=== PATIENT | male | born 1990 | race Caucasian/White ===

== ENCOUNTER 2018-03-16 19:19 | Emergency (ER) | payer MEDICARE, MEDICAID, SELFPAY ==
[2018-03-16 19:25] VITALS: BP 143/96; PULSE 109; RESP 18; TEMP 37; O2SAT 96
--- NOTE | 2018-03-16 19:37 | ED.GENADUL_ITS ---
Disposition Clinical Impression: Tooth pain, Sialolith Disposition: HOME Condition: Good Instructions: Toothache (ED), Sialoadenitis (ED) Additional Instructions: Please eat plenty of salty things. Please take Tylenol Motrin as directed. Please follow-up with your dentist as soon as possible. If you notice any worsening of your symptoms, or any new symptoms such as vomiting, diarrhea, fever, chills, shortness of breath, chest pain, numbness, weakness, or fainting , please return immediately to the emergency department for reevaluation. Please follow up with your primary care provider as soon as possible for reassessment and reevaluation. As always, it was a pleasure participating in your medical care today. Prescriptions: Acetaminophen [Tylenol Extra Strength] 1,000 mg PO Q6H 5 Days #60 tab Ibuprofen [Motrin Ib] 600 mg PO Q6H 5 Days #60 tablet Referrals: Barron Joyce [Primary Care Provider] - Medical Decision Making - Medical Decision Making This is a 28-year-old male who presents for a mild tooth pain. No evidence of infection for his right lower teeth, he does have a certainly malplaced wisdom tooth, which she has seen a dentist and he is going through the necessary steps for surgical removal of these. He does complain of this mild pain but shows no signs of airway compromise, peritonsillar abscess, tonsillar exudate or swelling, uvular deviation, or even abscess around the tooth itself. There does appear to be a small amount of oral mucosal swelling with small associated sialolith. With no evidence of infection, no signs of airway compromise or significant or pathology aside for his malplaced wisdom teeth and potential small sialolith feel he is safe for discharge home with close follow-up with his PCP and dentist. We discussed red flags which returned the patient understands. He has refused a dental block at this time and is requesting Tylenol and Motrin to go home with instead. I have extensively reviewed the treatment plan and discharge instructions with the patient and their family. I have addressed all patient concerns at this time. The patient and family was made aware of what symptoms to monitor for that would warrant a return to the emergency department. Discussed the plan with the patient and family, they demonstrate verbal understanding and agreement with our assessment and plan at this time. History of Present Illness - General Chief complaint: DentalOral Stated complaint: MOUTH PAIN Time Seen by Provider: 03/16/18 19:34 - History of Present Illness Initial comments: This is a pleasant 28-year-old male with no significant medical past medical history who presents today for evaluation of right lower tooth pain. Patient has known wisdom teeth that are impacted, he has been seen and assessed by dentist for potential extraction. Is currently awaiting further visitation with his primary care provider, and oral surgeon, and an anesthesiologist. He presents today for right lower posterior dental pain. Patient states that he has had very mild pain over the last 1-2 days in the posterior aspect. He denies any difficulty swallowing, difficulty controlling his secretions, or severe pain when eating. He denies any trismus, fever, chills, vomiting or diarrhea. States his pain is made worse when he bites down hard, it improved by nothing. Patient states that he does have a small amount of swelling that he notes over to the tooth, no pain or swelling around the tooth. Patient denies any other complaints at this time. He denies any past surgical history. He denies any pertinent family history. He denies any IV or illicit drug use. - Related Data Melatonin [Melatin] 9 mg PO HS #21 03/24/17 Multivit with Calcium,Iron,Min [One Daily with Calcium-Iron] 1 each PO DAILY 09/08 Risperidone 2 mg PO DAILY #14 tablet 03/24/17 Risperidone 4 mg PO HS #7 tablet 03/24/17 TraZODone [Desyrel] 50 mg PO HS #7 03/24/17 Acetaminophen [Tylenol Extra Strength] 1,000 mg PO Q6H 5 Days #60 tab 03/16/18 Cariprazine HCl [Vraylar] 1 tab PO DAILY AM 03/16/18 Gabapentin 300 mg PO TID 03/16/18 Ibuprofen [Motrin Ib] 600 mg PO Q6H 5 Days #60 tablet 03/16/18 Allergies Allergy/AdvReac Type Severity Reaction Status Date / Time aripiprazole [From Abilify] AdvReac Severe Headache Verified 12/15/17 19:19 Review of Systems Other: 10 point review of systems was performed, pertinent positives and negatives are noted in the history of present illness. Past Medical History - Past Medical History Medical history: no medical history Surgical history: no surgical history - Social History Alcohol use: none Drug use: none General Exam - Other Other exam information: 1.Const: Well-nourished, Well-developed, appearing stated age 2.Eyes: PERRL, no conjunctival injection, and symmetrical lids. 3.ENT: Atraumatic external nose and ears. Moist MM. Neck: Symmetric, trachea midline, No thyromegaly. No signs of airway compromise. No evidence of tonsillar swelling or exudate. No evidence of tonsillar plaques, uvular deviation, or airway compromise. Patient does have 2 in-place wisdom teeth that are perpendicular with his other teeth. Palpation of the area demonstrates no significant swelling, no evidence of abscess, no evidence of discharge or drainage. No significant tenderness on palpation of the tooth. He does appear to be a questionable small sialolith on the right lower oral mucosa. No signs of infection, severe dental caries, or other abnormality. No significant cervical lymphadenopathy. 4.CVS: +S1/S2, No murmurs or gallops. Peripheral pulses 2+ and equal in all extremities. Brisk capillary refill in all extremities. 5.RESP: Unlabored respiratory effort. Clear to auscultation bilaterally. No wheezes rales or rhonchi 6.GI: Soft, Nontender/Nondistended, No hepatosplenomegaly. No guarding or rebound. 7.MSK: Normocephalic/Atraumatic, Extremities w/o deformity or ttp No cyanosis or clubbing, Normal movement of all extremities 8.Skin: Warm, Dry. No rashes or lesions. 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 Sensation grossly intact, no focal neurologic deficits. 10.Psych: (AAO) x3. Appropriate mood and affect Course Vital Signs - 24 hr 03/16/18 19:25 Temperature 37 C Pulse 109 H Respiratory 18 Rate Blood Pressure 143/96 Pulse Oximetry 96
[2018-03-16 20:09] VITALS: BP 137/94; PULSE 101; RESP 18; TEMP 37; O2SAT 97
== END 2018-03-16 20:10 | disposition home or self-care (01) ==
PROVIDERS: Emergency Provider Student in an Organized Health Care Education/Training Program; PCP Family Medicine
DX: R68.84 Jaw pain (principal); K11.5 Sialolithiasis
CPT/HCPCS: 99282 ×2

== ENCOUNTER 2018-07-06 22:50 | Emergency (ER) | payer MEDICARE, MEDICAID, SELFPAY ==
[2018-07-06 23:01] VITALS: PULSE 80; RESP 20; TEMP 36.7; O2SAT 98
--- NOTE | 2018-07-06 23:14 | DI.RAD_ITS ---
SYMPTOM/DIAGNOSIS: 'PATELLA DISLOCATED [facility]', KNEE PAIN LEFT KNEE: Three views. No bone or joint abnormality is identified. IMPRESSION: Negative examination.
--- NOTE | 2018-07-06 23:15 | W.ED.GENAD ---
Discharge Plan Disposition Patient Disposition: HOME Condition: Improving Discharge Details Chief Complaint: Orthopedic Clinical Impression: Contusion of knee, left Primary Care Provider: Barron Joyce ED Provider: Pb Elias Home Meds and New Rx's Prescriptions: Continued One Daily Calcium/Iron 1 EACH tablet 1 ea PO DAILY RF: 0 risperidone 1 MG tablet 2 mg PO DAILY Qty: 14 RF: 0 risperidone 4 MG tablet 4 mg PO HS Qty: 7 RF: 0 trazodone 50 MG tablet 50 mg PO HS Qty: 7 RF: 0 melatonin [Melatin] 3 MG tablet 9 mg PO HS Qty: 21 RF: 0 gabapentin 300 MG capsule 300 mg PO TID RF: 0 Vraylar 1.5 MG capsule 1 tab PO DAILY AM RF: 0 acetaminophen [Mapap Extra Strength] 500 MG tablet 1,000 mg PO Q6H 5 Days Qty: 60 RF: 0 Ibuprofen [Motrin Ib] 200 MG Tablet 600 mg PO Q6H 5 Days Qty: 60 RF: 0 Discharge Instructions Instructions: Contusion in Adults (ED) Additional Instructions: Ice to reduce pain and swelling. Once daily dressing change. Tylenol and/or Ibuprofen as needed for pain. Return for any acute concerns. Medical Decision Making 38-year-old male slipped and fell on ice, landing on his left knee and states he feels his patella was transiently dislocated and relocated by the patient prior to presentation. He did not suffer any other injury. Referred for x-ray to rule out bony dislocation or fracture. No fracture appreciated. Wound cleansed and dressed. Patient ambulatory and feeling better. He is stable for discharge at this time with management of knee contusion HPI General Mode of arrival: wheelchair. Date/Time Provider Initiated Documentation: 07/06/18 22:50. Limitations to Documentation: no limitations. Information obtained by: patient. History of Present Illness 28 year old M presents to the emergency department with the chief complaint of Slip and fall with left knee pain. Question if my patella dislocated, described as moderate, Quality is described as aching, and is localized to the left and lower extremity. Patient reports no radiation. Patient started experiencing this minute(s) and it has been constant. No relieving factors improve symptom(s), No exacerbating factors reported . Patient notes other (Abrasion). Related Data Home Medications Medication Instructions Recorded Confirmed One Daily Calcium/Iron 1 ea PO DAILY 03/24/17 07/06/18 melatonin [Melatin] 9 mg PO HS #21 03/24/17 07/06/18 risperidone 2 mg PO DAILY #14 tablet 03/24/17 07/06/18 risperidone 4 mg PO HS #7 tablet 03/24/17 07/06/18 trazodone 50 mg PO HS #7 03/24/17 07/06/18 Ibuprofen [Motrin Ib] 600 mg PO Q6H 5 Days #60 tablet 03/16/18 07/06/18 Vraylar 1 tab PO DAILY AM 03/16/18 07/06/18 acetaminophen [Mapap Extra 1,000 mg PO Q6H 5 Days #60 tab 03/16/18 07/06/18 Strength] gabapentin 300 mg PO TID 03/16/18 07/06/18 Previous Rx's Medication Instructions Recorded melatonin [Melatin] 9 mg PO HS #21 03/24/17 risperidone 2 mg PO DAILY #14 tablet 03/24/17 risperidone 4 mg PO HS #7 tablet 03/24/17 trazodone 50 mg PO HS #7 03/24/17 Ibuprofen [Motrin Ib] 600 mg PO Q6H 5 Days #60 tablet 03/16/18 acetaminophen [Mapap Extra 1,000 mg PO Q6H 5 Days #60 tab 03/16/18 Strength] Allergies Allergy/AdvReac Type Severity Reaction Status Date / Time [facility] [[facility] AdvReac Severe Headache Verified 07/06/18 23:08 General Stated Complaint: Orthopedic RAI: 4 Review of Systems Review of Systems 4 systems reviewed and otherwise no PFSH Social History Smoking/Tobacco Use Status: Never Exam Narrative Exam Narrative: GEN: awake, alert, oriented 3. Pleasant, well groomed, interactive. HEAD: Normocephalic, atraumatic ENT: Mucous membranes moist, oropharynx unremarkable, External ear exam unremarkable EYES: PERRL, EOMI NECK: Full ROM, no SAMRA, no menigismus CHEST/RESP: Nontender EXT: Full ROM, no edema, no rash. Abrasion right medial knee, mild tenderness throughout the joint, no laxity present. Motor 5 out of 5 in upper and lower extremity Neuro: Grossly normal neurologic exam, conversant, interactive. Psych: Speech fluent, thoughts congruent, affect normal M Course Vital Signs Temperature 36.7 C 07/06/18 23:01 Pulse 80 07/06/18 23:01 Respiratory Rate 20 07/06/18 23:01 Pulse Oximetry 98 07/06/18 23:01 Temperature 36.7 C 07/06/18 23:01 Temperature Source Temporal Artery Scan 07/06/18 23:01 Pulse 80 07/06/18 23:01 Respiratory Rate 20 07/06/18 23:01 Respiratory Effort Non-Labored 07/06/18 23:06 Pulse Oximetry 98 07/06/18 23:01 Oxygen Delivery Method Room Air 07/06/18 23:01 Oxygen Flow Rate 0 07/06/18 23:01 Pain Level 8 07/06/18 23:01 Comment 07/06/18 23:01
--- NOTE | 2018-07-06 23:19 | NUR.NOTE ---
Nursing Note: cleansed with saline, bacitracin applied to superficial abrasion medial left knee. Knee wrapped in non adherent dressing covered with gauze.
[2018-07-06 23:55] VITALS: PULSE 80; RESP 20; TEMP 36.7; O2SAT 98
--- NOTE | 2018-07-07 00:25 | DI.VRAD_ITS ---
EXAM: XR Left Knee, 3 Views EXAM DATE/TIME: 07/06/2018 11:16 PM CLINICAL HISTORY: 28 years old, male; Injury or trauma; Fall; Initial encounter; Abrasion and sprain or strain; Patella or knee; Left TECHNIQUE: XR Left knee 3 views. COMPARISON: No relevant prior studies available. FINDINGS: Bones/joints: Typical for age. No evidence of acute fracture. Soft tissues: Unremarkable. IMPRESSION: No acute findings. Dictated and Authenticated by: Tyler Chang MD. Ordering:BARB Ambriz MD
== END 2018-07-06 23:55 | disposition home or self-care (01) ==
PROVIDERS: Emergency Provider Emergency Medicine; PCP Family Medicine
DX: S80.02XA Contusion of left knee, initial encounter (principal); W01.0XXA Fall on same level from slipping, tripping and stumbling without subsequent striking against object, initial encounter
CPT/HCPCS: 73562; 99283; 99282

== ENCOUNTER 2018-09-05 16:57 | Emergency (ER) | payer MEDICARE, MEDICAID, SELFPAY ==
[2018-09-05 17:06] VITALS: BP 154/106; PULSE 97; RESP 16; TEMP 37.2; O2SAT 97
--- NOTE | 2018-09-05 17:25 | ED.GENADUL_ITS ---
Discharge Plan Disposition Patient Disposition: HOME Condition: Stable Discharge Details Chief Complaint: GenMedical Clinical Impression: General weakness Primary Care Provider: Barron Joyce ED Provider: Erik Cordero Home Meds and New Rx's Prescriptions: Continued One Daily Calcium/Iron 1 EACH tablet 1 ea PO DAILY RF: 0 trazodone 50 MG tablet 50 mg PO HS Qty: 7 RF: 0 melatonin [Melatin] 3 MG tablet 9 mg PO HS Qty: 21 RF: 0 gabapentin 300 MG capsule 600 mg PO TID RF: 0 Vraylar 1.5 MG capsule 3 tab PO DAILY AM RF: 0 acetaminophen [Mapap Extra Strength] 500 MG tablet 1,000 mg PO Q6H 5 Days Qty: 60 RF: 0 Ibuprofen [Motrin Ib] 200 MG Tablet 600 mg PO Q6H 5 Days Qty: 60 RF: 0 risperidone 1 MG tablet 6 mg PO DAILY RF: 0 Discharge Instructions Instructions: Weakness (ED) Additional Instructions: follow up with your primary care provider in 1-2 weeks if not improving if you feel you are having difficulty breathing, have severe pain in the abdomen or feel significantly more ill return to the emergency department for reevaluation Medical Decision Making 28 yo male with hx of bipolar, anxiety, who comes in with chief complaint of feeling general weakness and fatigue since yesterday and intermittent tingling and numbness in the extremities. no fevers, chills, n/v, dyapnea, chest pain, abdominal pain. No recent travel or new meds per pt. He is caox4 without focal neuro deficits, nih of 0, doubt entities such as cva or tia given lack of weakness or vision changes or other symptoms to suggest this. No fevers or other infectious symptoms. No murmurs, denies ivdu and no stigmata of endocarditis. Will eval for electrolyte abnormalities, check tsh and eval for anemia and monitor labs unremarkable, he remains stable, ambulating with normal gait and no new findings on exam. Feel he is safe for d/c with f/u with pcp and return if any worsening or new concerning symptoms develop Differential Diagnosis viral illness, anemia, electrolyte abnormality, hypothyroid Lab Data Lab results reviewed: Yes I reviewed the patient's lab results. HPI General Mode of arrival: ambulatory . Date/Time Provider Initiated Documentation: 09/05/18 17:03 . Limitations to Documentation: no limitations . Information obtained by: patient . History of Present Illness 28 year old M presents to the emergency department with the chief complaint of general fatigue, described as mild, with intensity rated at 3. Patient started experiencing this day(s) and it has been constant. No relieving factors improve symptom(s), No exacerbating factors reported . Patient notes other (numbness and tingling). Patient did receive the following treatments prior to arrival, none Related Data Home Medications Medication Instructions Recorded Confirmed One Daily Calcium/Iron 1 ea PO DAILY 03/24/17 09/05/18 melatonin [Melatin] 9 mg PO HS #21 03/24/17 09/05/18 trazodone 50 mg PO HS #7 03/24/17 09/05/18 Ibuprofen [Motrin Ib] 600 mg PO Q6H 5 Days #60 tablet 03/16/18 07/06/18 Vraylar 3 tab PO DAILY AM 03/16/18 07/06/18 acetaminophen [Mapap Extra 1,000 mg PO Q6H 5 Days #60 tab 03/16/18 09/05/18 Strength] gabapentin 600 mg PO TID 03/16/18 07/06/18 risperidone 6 mg PO DAILY 09/05/18 09/05/18 Previous Rx's Medication Instructions Recorded melatonin [Melatin] 9 mg PO HS #21 03/24/17 trazodone 50 mg PO HS #7 03/24/17 Ibuprofen [Motrin Ib] 600 mg PO Q6H 5 Days #60 tablet 03/16/18 acetaminophen [Mapap Extra 1,000 mg PO Q6H 5 Days #60 tab 03/16/18 Strength] Allergies Allergy/AdvReac Type Severity Reaction Status Date / Time aripiprazole [From Abilify] AdvReac Severe Headache Verified 09/05/18 17:09 General Stated Complaint: GenMedical RAI: 3 Review of Systems Review of Systems All systems reviewed & are unremarkable except as noted in HPI and below Constitutional Denies chills and Denies fever(s) Eyes Denies loss of vision ENT Denies change in voice Cardiovascular Denies chest pain and Denies dyspnea Respiratory Denies cough and Denies dyspnea Gastrointestinal Denies abdominal pain, Denies nausea and Denies vomiting Genitourinary Denies dysuria Musculoskeletal Denies joint swelling Integumentary/Breasts Denies rash Neurologic Denies loss of vision Psychiatric Denies depression Endocrine Denies cold intolerance and Denies heat intolerance PFSH Social History Smoking and Tabacco status: Never Exam Const General: no acute distress Orientation: alert HENMT Head: normal to inspection Ears: external ears normal General nose exam: external nose normal Mouth: moist mucous membranes Eyes General: appearance normal, both eyes and all related structures Neck Neck: normal visual inspection Resp Effort & Inspection: normal respiratory effort and able to speak in complete sentences Cardio Rate: regular rate Skin General skin exam: no rashes or lesions noted Neuro General: alert and oriented x3 Extrem General: normal to inspection Psych Mental Status: mental status grossly normal Course Vital Signs Temperature 37.2 C 09/05/18 17:06 Pulse 97 H 09/05/18 17:06 Respiratory Rate 16 09/05/18 17:06 Blood Pressure 154/106 H 09/05/18 17:06 Pulse Oximetry 97 09/05/18 17:06 Temperature 37.2 C 09/05/18 17:06 Temperature Source Skin 09/05/18 17:06 Pulse 97 H 09/05/18 17:06 Respiratory Rate 16 09/05/18 17:06 Respiratory Effort Non-Labored 09/05/18 17:06 Blood Pressure 154/106 H 09/05/18 17:06 Blood Pressure Position Sitting 09/05/18 17:06 Pulse Oximetry 97 09/05/18 17:06 Oxygen Delivery Method Room Air 09/05/18 17:06 Oxygen Flow Rate 0 09/05/18 17:06 Pain Level 0 09/05/18 17:06
[2018-09-05 17:47] LABS: Abs Immature Grans 0.03 k/cumm (0.0-0.09); Absolute Basophil Count 0.02 k/cumm (0.0-0.2); Absolute Eosinophil Count 0.11 k/cumm (0.0-0.7); Absolute Lymphocyte Count 1.75 k/cumm (1.2-3.4); Absolute Monocyte Count 0.64 k/cumm (0.11-0.7); Absolute Neutrophil Count 5.34 k/cumm (1.2-6.7); Basophils % 0.3; Eosinophils % 1.4; HCT 41.2 % (40.0-50.0); HGB 13.9 g/dL (13.5-17.5); Immature Grans % 0.4; Lymphocytes % 22.2; Mean Corp. HGB Concentration 33.7 g/dL (32.0-36.0); Mean Corpuscular Hemoglobin 30.8 pg (27.0-33.0); Mean Corpuscular Volume 91.4 fL (80-95); Mean Platelet Volume 9.6 fL (8.0-11.0); Monocytes % 8.1; Neutrophils % 67.6; Platelet Count 195 x1000/uL (130-400); RBC 4.51 m/cumm (4.50-6.00); RBC Distribution Width 13.6 % (11.8-14.1); White Blood Cell Count 7.89 k/cumm (4.4-10.8)
[2018-09-05 18:04] LABS: BUN 9 mg/dL (7-18); CREATININE 1.13 mg/dL (0.70-1.30); Calcium 8.9 mg/dL (8.5-10.1); Chloride 103 mmol/L (98-107); Glucose 136 mg/dL (70-100); Potassium 3.9 mmol/L (3.5-5.1); Sodium 142 mmol/L (136-145); TSH (W/Ref FT4) 2.32 uIU/mL (0.358-3.74)
== END 2018-09-05 18:20 | disposition home or self-care (01) ==
PROVIDERS: Emergency Provider Emergency Medicine; PCP Family Medicine
DX: R53.1 Weakness (principal); R53.83 Other fatigue; R20.2 Paresthesia of skin
CPT/HCPCS: 36415; 80048; 99283; 84443; 85025; 99282

== ENCOUNTER 2019-02-23 14:48 | Emergency (ER) | payer MEDICARE, MEDICAID, SELFPAY ==
[2019-02-23 14:59] VITALS: BP 130/88; PULSE 107; RESP 20; TEMP 37.1; O2SAT 96
[2019-02-23] MEDS: Lidocaine 5% Patch 1 PATCH (15:10)
--- NOTE | 2019-02-23 15:40 | ED.GENADUL_ITS ---
Discharge Plan Disposition Patient Disposition: HOME Condition: Stable Discharge Details Chief Complaint: Nk/Back Pain Clinical Impression: Lumbar back pain Primary Care Provider: Barron Joyce ED Provider: Luis Cruz Home Meds and New Rx's Prescriptions: New cyclobenzaprine 10 mg tablet 10 mg PO TID PRN (Reason: muscle spasm) Qty: 10 RF: 0 Continued One Daily Calcium/Iron 1 EACH tablet 1 ea PO DAILY RF: 0 trazodone 50 MG tablet 50 mg PO HS Qty: 7 RF: 0 melatonin [Melatin] 3 MG tablet 9 mg PO HS Qty: 21 RF: 0 acetaminophen [Mapap Extra Strength] 500 MG tablet 1,000 mg PO Q6H 5 Days Qty: 60 RF: 0 Ibuprofen [Motrin Ib] 200 MG Tablet 600 mg PO Q6H 5 Days Qty: 60 RF: 0 gabapentin 300 MG capsule 600 mg PO TID RF: 0 Vraylar 1.5 MG capsule 3 tab PO DAILY AM RF: 0 risperidone 1 MG tablet 6 mg PO DAILY RF: 0 Discharge Instructions Instructions: Low Back Strain (ED) Additional Instructions: Please take 600 mg of ibuprofen along with 1000 mg of acetaminophen every 6 hours for pain. You may use the Flexeril every 8 hours for muscle spasms. If lidocaine patch is effective you may purchase these [id number] and use as directed on packaging. Return to the emergency department for any severe worsening of symptoms otherwise for continued symptoms you should follow-up with your primary care provider in the next 1 to 2-weeks Referrals: Barron Joyce [Primary Care Provider] - (As needed for reassessment or if not improving) Discharge Data Discharge Date/Time-TO BE ENTERED AT DEPARTURE: 02/23/19 15:57 Medical Decision Making Patient presenting the emergency department for chief complaint of back pain. Patient states that he was bending over 1 week ago and felt something pull in his back. Patient states chronic history of back pain after injury from some horseplay with his brother. He states that this was 6 years ago or greater. After injuring his back a week ago he initially tried to continue to perform activities but over the past 5 days has only laid in bed and noting that pain is getting worse. Physical exam shows lumbar spinal tenderness with significant tenderness to palpation of paraspinal tissue along with palpation of the buttocks and sciatic notches. This is bilateral. Patient has no radiculopathy symptoms to distal extremities, no numbness no tingling stated by patient, no saddle anesthesia, no fever no chills, no bowel or bladder dysfunction. At this time I doubt central cord syndrome, epidural abscess, cauda equina, or other emergent back pain and feel that this is more of lumbar back pain 1 due to patient's body habitus and to due to muscular injury. Patient was encouraged to take ibuprofen and acetaminophen, Flexeril, and use [id number] lidocaine patches as needed for discomfort. Return precautions discussed otherwise patient to follow-up with primary care provider for reassessment if not improving. After discussion of diagnosis and plan of care patient has no further needs, questions, or concerns and states clear understanding to return to the emergency department for any worsening symptoms. HPI General Mode of arrival: ambulatory . Date/Time Provider Initiated Documentation: 02/23/19 15:21 . Limitations to Documentation: no limitations . Information obtained by: patient and RN notes reviewed . History of Present Illness 29 year old M presents to the emergency department with the chief complaint of back pain, described as severe, with intensity rated at 8. Quality is described as sharp, and is localized to the back. Patient started experiencing this week(s) (1) and it has been constant. Movement worsens symptoms . Patient notes no other symptoms.. Patient did receive the following treatments prior to arrival, none Related Data Home Medications Medication Instructions Recorded Confirmed One Daily Calcium/Iron 1 ea PO DAILY 03/24/17 09/05/18 melatonin [Melatin] 9 mg PO HS #21 03/24/17 09/05/18 trazodone 50 mg PO HS #7 03/24/17 09/05/18 Vraylar 3 tab PO DAILY AM 03/16/18 07/06/18 gabapentin 600 mg PO TID 03/16/18 07/06/18 risperidone 6 mg PO DAILY 09/05/18 09/05/18 Ibuprofen [Motrin Ib] 600 mg PO Q6H 5 Days #60 tab 02/23/19 acetaminophen [Mapap Extra 1,000 mg PO Q6H 5 Days #60 tab 02/23/19 Strength] cyclobenzaprine 10 mg PO TID PRN #10 tab 02/23/19 Previous Rx's Medication Instructions Recorded melatonin [Melatin] 9 mg PO HS #21 03/24/17 trazodone 50 mg PO HS #7 03/24/17 Ibuprofen [Motrin Ib] 600 mg PO Q6H 5 Days #60 tab 02/23/19 acetaminophen [Mapap Extra 1,000 mg PO Q6H 5 Days #60 tab 02/23/19 Strength] cyclobenzaprine 10 mg PO TID PRN #10 tab 02/23/19 Allergies Allergy/AdvReac Type Severity Reaction Status Date / Time aripiprazole [From Abilify] AdvReac Severe Headache Verified 09/05/18 17:09 General Stated Complaint: Nk/Back Pain RAI: 3 Review of Systems Constitutional Denies chills and Denies fever(s) Cardiovascular Denies chest pain and Denies dyspnea on exertion Respiratory Denies cough and Denies dyspnea on exertion Gastrointestinal Denies abdominal pain, Denies change in bowel habits, Denies diarrhea, Denies nausea and Denies vomiting Genitourinary Denies difficulty urinating and Denies urinary incontinence Musculoskeletal Reports as per HPI and Reports back pain Neurologic Denies sensory deficit PFSH Social History Smoking/Tobacco Use Status: Never Drug use: Never Do you feel safe in your relationship?: Yes Exam Const General: cooperative Nutritional Appearance: obese morbidly obese Orientation: alert, awake and oriented x3 Neck Neck: normal visual inspection, full ROM and no meningeal signs Resp Effort & Inspection: normal respiratory effort Auscultation: clear to auscultation bilaterally Cardio Rate: regular rate Rhythm: regular rhythm Heart Sounds: S1 normal and S2 normal Back/Spine/Pelvis Thoracic/Lumbar Spine: pain with thoraco-lumbar ROM, paraspinal tenderness (lower lumbar), thoraco-lumbar ROM limited, lumbar spinal tenderness (L3-4) and straight leg raise positive Pelvis: no pain with anterior-posterior compression, no pain with lateral compression, no buttock ecchymosis, buttock tenderness bilaterally and sciatic notch tenderness on the right and on the left Neuro General: alert, awake and oriented x3 DTR's: Rt Patellar: 2+, Lt Patellar: 2+, Rt Ankle: 2+ and Lt Ankle: 2+ Course Vital Signs Temperature 37.1 C 02/23/19 14:59 Pulse 107 H 02/23/19 14:59 Respiratory Rate 20 02/23/19 14:59 Blood Pressure 130/88 02/23/19 14:59 Pulse Oximetry 96 02/23/19 14:59 Temperature 37.1 C 02/23/19 14:59 Temperature Source Temporal Artery Scan 02/23/19 14:59 Pulse 107 H 02/23/19 14:59 Respiratory Rate 20 02/23/19 14:59 Blood Pressure 130/88 02/23/19 14:59 Blood Pressure Position Sitting 02/23/19 14:59 Pulse Oximetry 96 02/23/19 14:59 Oxygen Delivery Method Room Air 02/23/19 14:59 Oxygen Flow Rate 0 02/23/19 14:59 Pain Level 10 02/23/19 14:59
[2019-02-23] MEDS: Acetaminophen 500 MG TAB 1000 MG PO (15:46)
[2019-02-23] MEDS: Ibuprofen 600 MG TAB PO (15:46)
[2019-02-23] MEDS: Cyclobenzaprine 10 MG TAB PO (15:46)
== END 2019-02-23 15:57 | disposition home or self-care (01) ==
LOC: ER 15:49
PROVIDERS: Emergency Provider Nurse Practitioner Family; PCP Family Medicine
DX: M54.5 Low back pain (principal)
CPT/HCPCS: 99283

== ENCOUNTER 2019-04-22 15:33 | Emergency (ER) | payer MEDICARE, MEDICAID, SELFPAY ==
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
[2019-04-22 15:44] VITALS: BP 125/87; PULSE 120; RESP 16; TEMP 37.2; O2SAT 96
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
[2019-04-22 16:05] VITALS: PULSE 98
--- NOTE | 2019-04-22 16:13 | NUR.NOTE ---
Nursing Note: pt apears significantly calmer after sitting in the ER for several moments. also noted that his HR had gone from 120s to 90s
[2019-04-22 17:02] VITALS: BP 125/87; PULSE 98; RESP 16; TEMP 37.2; O2SAT 96
== END 2019-04-22 17:08 | disposition home or self-care (01) ==
PROVIDERS: Emergency Provider Physician Assistant; PCP Family Medicine
DX: F41.9 Anxiety disorder, unspecified (principal); F43.12 Post-traumatic stress disorder, chronic; R22.41 Localized swelling, mass and lump, right lower limb
CPT/HCPCS: 99283

== ENCOUNTER 2019-04-28 17:03 | Emergency (ER) | payer MEDICARE, MEDICAID, SELFPAY ==
[2019-04-28 17:09] VITALS: BP 157/94; PULSE 104; RESP 20; TEMP 36.8; O2SAT 98
--- NOTE | 2019-04-28 17:53 | ED.GENADUL_ITS ---
Discharge Plan Disposition Patient Disposition: HOME Condition: Stable Discharge Details Chief Complaint: Sorethroat Clinical Impression: Acute left otitis media Primary Care Provider: Barron Joyce ED Provider: Erik Cordero Home Meds and New Rx's Prescriptions: New amoxicillin 500 mg tablet 500 mg PO BID Qty: 20 RF: 0 Continued One Daily Calcium/Iron 1 EACH tablet 1 ea PO DAILY RF: 0 trazodone 50 MG tablet 50 mg PO HS Qty: 7 RF: 0 melatonin [Melatin] 3 MG tablet 9 mg PO HS Qty: 21 RF: 0 cyclobenzaprine 10 mg tablet 10 mg PO TID PRN (Reason: muscle spasm) Qty: 10 RF: 0 acetaminophen [Mapap Extra Strength] 500 MG tablet 1,000 mg PO Q6H 5 Days Qty: 60 RF: 0 Ibuprofen [Motrin Ib] 200 MG Tablet 600 mg PO Q6H 5 Days Qty: 60 RF: 0 gabapentin 300 MG capsule 600 mg PO TID RF: 0 Vraylar 1.5 MG capsule 3 tab PO DAILY AM RF: 0 risperidone 1 MG tablet 6 mg PO DAILY RF: 0 Discharge Instructions Instructions: Otitis Media (ED) Additional Instructions: if not better within a week see your primary care provider if you have severe worsening pain or feel more ill return to the emergency department Medical Decision Making patient has had nasal congestion, sore throat and left ear pain for several days. he denies high fevers and is swallowing, speaking and breathing normally on exam. 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 Does have mild erythema of posteriorp harynx, strep negative. right tm, bilateral ext audtory canals and external mastoid exams normal. Left tm is red and bugling so will start abx for this as he has had symptoms for 2 days. Return precautions given Differential Diagnosis Differential Diagnosis: pharyngitis, uri, acute otitis media Lab Data Lab results reviewed: Yes I reviewed the patient's lab results. HPI General Mode of arrival: ambulatory . Date/Time Provider Initiated Documentation: 04/28/19 17:22 . Limitations to Documentation: no limitations . Information obtained by: patient . History of Present Illness 29 year old M presents to the emergency department with the chief complaint of left ear pain, described as moderate, Quality is described as aching, and it has been c onstant. No relieving factors improve symptom(s), No exacerbating factors reported . Patient did receive the following treatments prior to arrival, none Related Data Home Medications Medication Instructions Recorded Confirmed One Daily Calcium/Iron 1 ea PO DAILY 03/24/17 04/22/19 melatonin [Melatin] 9 mg PO HS #21 03/24/17 04/22/19 trazodone 50 mg PO HS #7 03/24/17 04/22/19 Vraylar 3 tab PO DAILY AM 03/16/18 04/22/19 gabapentin 600 mg PO TID 03/16/18 04/22/19 risperidone 6 mg PO DAILY 09/05/18 04/22/19 Ibuprofen [Motrin Ib] 600 mg PO Q6H 5 Days #60 tablet 02/23/19 04/22/19 acetaminophen [Mapap Extra 1,000 mg PO Q6H 5 Days #60 tab 02/23/19 04/22/19 Strength] cyclobenzaprine 10 mg PO TID PRN #10 tab 02/23/19 04/22/19 amoxicillin 500 mg PO BID #20 tab 04/28/19 Previous Rx's Medication Instructions Recorded melatonin [Melatin] 9 mg PO HS #21 03/24/17 trazodone 50 mg PO HS #7 03/24/17 Ibuprofen [Motrin Ib] 600 mg PO Q6H 5 Days #60 tablet 02/23/19 acetaminophen [Mapap Extra 1,000 mg PO Q6H 5 Days #60 tab 02/23/19 Strength] cyclobenzaprine 10 mg PO TID PRN #10 tab 02/23/19 amoxicillin 500 mg PO BID #20 tab 04/28/19 Allergies Allergy/AdvReac Type Severity Reaction Status Date / Time aripiprazole [From Abilify] AdvReac Severe Headache Verified 04/22/19 15:45 General Stated Complaint: Sorethroat RAI: 3 Review of Systems Review of Systems ROS Unobtainable: All systems reviewed & are unremarkable except as noted in HPI and below Constitutional Constitutional: Denies weakness ENT Ears, Nose, Mouth, and Throat: Denies change in voice Cardiovascular Cardiovascular: Denies chest pain and Denies dyspnea Respiratory Respiratory: Denies cough and Denies dyspnea Gastrointestinal Gastrointestinal: Denies abdominal pain, Denies nausea and Denies vomiting Musculoskeletal Musculoskeletal: Denies joint swelling Neurologic Neurologic: Denies weakness [facility] Social History Smoking/Tobacco Use Status: Never Alcohol Intake: never Drug use: Never Substance use type: does not use Do you feel safe at home: Yes Do you feel safe in your relationship?: Yes Exam Const General: no acute distress Orientation: alert HENMT Head: normal to inspection Ears: external ears normal General nose exam: external nose normal Mouth: moist mucous membranes Eyes General: appearance normal, both eyes and all related structures Neck Neck: normal visual inspection Resp Effort & Inspection: normal respiratory effort and able to speak in complete sentences Cardio Rate: regular rate Skin General skin exam: no rashes or lesions noted Neuro General: alert and oriented x3 Extrem General: normal to inspection Psych Mental Status: mental status grossly normal Course Vital Signs Vital signs: Vital Signs Temperature 36.8 C 04/28/19 17:09 Pulse 104 H 04/28/19 17:09 Respiratory Rate 20 04/28/19 17:09 Blood Pressure 157/94 H 04/28/19 17:09 Pulse Oximetry 98 04/28/19 17:09 Temperature 36.8 C 04/28/19 17:09 Temperature Source Skin 04/28/19 17:09 Pulse 104 H 04/28/19 17:09 Respiratory Rate 20 04/28/19 17:09 Blood Pressure 157/94 H 04/28/19 17:09 Blood Pressure Position Sitting 04/28/19 17:09 Pulse Oximetry 98 04/28/19 17:09 Oxygen Delivery Method Room Air 04/28/19 17:09 Oxygen Flow Rate 0 04/28/19 17:09 Lab/Test Results Lab/Test Results: 04/28/19 17:40 Pharynx Streptococcus Screen ([facility]ARCOS) - Pending POC Strep Test-GAURANG(Rapid) Start: 04/28/19 17:31 Freq: .Rapid Strep Test Status: Active Protocol: Document 04/28/19 17:46 MR (Rec: 04/28/19 17:46 MR [id number]) Strep test-GAURANG(Rapid)-POC POC-Strep test-GAURANG (Rapid) Negative POC-Strep test-GAURANG (Rapid) Negative
== END 2019-04-28 18:08 | disposition home or self-care (01) ==
PROVIDERS: Emergency Provider Emergency Medicine; PCP Family Medicine
DX: H66.92 Otitis media, unspecified, left ear (principal)
CPT/HCPCS: 87880; 99283; 87081

== ENCOUNTER 2019-05-26 08:36 | Emergency (ER) | payer MEDICARE, MEDICAID, SELFPAY ==
[2019-05-26 08:42] VITALS: BP 156/100; PULSE 82; RESP 18; TEMP 37.2; O2SAT 95
--- NOTE | 2019-05-26 08:45 | ED.GENADUL_ITS ---
Discharge Plan Disposition Patient Disposition: HOME Condition: Good Discharge Details Chief Complaint: RashLesion Clinical Impression: Abrasion Primary Care Provider: Barron Joyce ED Provider: Nyla Stephens Home Meds and New Rx's Prescriptions: Continued One Daily Calcium/Iron 1 EACH tablet 1 ea PO DAILY RF: 0 trazodone 50 MG tablet 50 mg PO HS Qty: 7 RF: 0 melatonin [Melatin] 3 MG tablet 9 mg PO HS Qty: 21 RF: 0 cyclobenzaprine 10 mg tablet 10 mg PO TID PRN (Reason: muscle spasm) Qty: 10 RF: 0 acetaminophen [Mapap Extra Strength] 500 MG tablet 1,000 mg PO Q6H 5 Days Qty: 60 RF: 0 Ibuprofen [Motrin Ib] 200 MG Tablet 600 mg PO Q6H 5 Days Qty: 60 RF: 0 amoxicillin 500 mg tablet 500 mg PO BID Qty: 20 RF: 0 gabapentin 300 MG capsule 600 mg PO TID RF: 0 Vraylar 1.5 MG capsule 3 tab PO DAILY AM RF: 0 risperidone 1 MG tablet 6 mg PO DAILY RF: 0 Discharge Instructions Instructions: Abrasion (ED) Additional Instructions: I see no evidence of infection today. You have abrasion in your bellybutton probably from you putting Q-tips and paper towels in it. Do not put anything into your bellybutton. Allow this to dry naturally, you may towel dry after shower but do not put anything deeper into your bellybutton you could see. Please follow-up with your primary care if you have any persistent symptoms. Monitor for signs of infection including redness, warmth, drainage, increased pain, fever/chills. If these arise please seek care urgently once again Referrals: Barron Joyce [Primary Care Provider] - Medical Decision Making Patient is morbidly obese 29-year-old male, accompanied by family, chief complaint of bleeding from his umbilicus. Reports that secondary to his size he has difficulty drying my bellybutton. States that every day after the shower he then puts a paper towel over his finger to insert this into his bellybutton. Also uses Q-tips to clean this out. The umbilicus is particularly deep and I am concerned that he is causing damage with his aggressive cleaning of this. He states that this morning he noted a small amount of blood and is concerned for infection. On evaluation, I see no evidence of infection. He does have a scant amount of blood in the umbilicus and a small abrasion on the superior aspect. Does not appear consistent with fungal infection, no other skin changes are noted. He appears nontoxic. I advised that he stop digitally manipulated his umbilicus and dry gently with a towel. Advise follow-up with primary care. He will return with new or worsening symptoms. All questions and concerns were addressed and is agreement this plan. HPI General Mode of arrival: ambulatory . Date/Time Provider Initiated Documentation: 05/26/19 08:45 . Limitations to Documentation: no limitations . Information obtained by: patient, family and RN notes reviewed . History of Present Illness 29 year old M presents to the emergency department with the chief complaint of bleeding from belly button, described as mild (states he has a very sensitive belly button), Quality is described as aching, and is localized to the abdomen. Patient reports no radiation. Patient started experiencing this unknown (states that he has always had sensitivity) and it has been intermittent (only when he puts things in his umbilicus). Other factors that worsen symptoms (palpation) . Patient notes no other symptoms.. Patient did receive the following treatments prior to arrival, none Related Data Home Medications Medication Instructions Recorded Confirmed One Daily Calcium/Iron 1 ea PO DAILY 03/24/17 05/26/19 melatonin [Melatin] 9 mg PO HS #21 03/24/17 05/26/19 trazodone 50 mg PO HS #7 03/24/17 05/26/19 Vraylar 3 tab PO DAILY AM 03/16/18 05/26/19 gabapentin 600 mg PO TID 03/16/18 05/26/19 risperidone 6 mg PO DAILY 09/05/18 05/26/19 Ibuprofen [Motrin Ib] 600 mg PO Q6H 5 Days #60 tablet 02/23/19 05/26/19 acetaminophen [Mapap Extra 1,000 mg PO Q6H 5 Days #60 tab 02/23/19 05/26/19 Strength] cyclobenzaprine 10 mg PO TID PRN #10 tab 02/23/19 04/22/19 amoxicillin 500 mg PO BID #20 tab 04/28/19 Previous Rx's Medication Instructions Recorded melatonin [Melatin] 9 mg PO HS #21 03/24/17 trazodone 50 mg PO HS #7 03/24/17 Ibuprofen [Motrin Ib] 600 mg PO Q6H 5 Days #60 tablet 02/23/19 acetaminophen [Mapap Extra 1,000 mg PO Q6H 5 Days #60 tab 02/23/19 Strength] cyclobenzaprine 10 mg PO TID PRN #10 tab 02/23/19 amoxicillin 500 mg PO BID #20 tab 04/28/19 Allergies Allergy/AdvReac Type Severity Reaction Status Date / Time aripiprazole [From Abilify] AdvReac Severe Headache Verified 05/26/19 08:46 General RAI: 3 Review of Systems Constitutional Constitutional: Reports as per HPI, Denies chills and Denies fever(s) Musculoskeletal Musculoskeletal: Reports as per HPI Integumentary/Breasts Skin/Breast: Reports as per HPI Neurologic Neurologic: Reports as per HPI, Denies sensory deficit and Denies paresthesias PFSH Social History Smoking/Tobacco Use Status: Never Alcohol Intake: never Drug use: Never Substance use type: does not use Do you feel safe at home: Yes Do you feel safe in your relationship?: Yes Exam Const General: cooperative, healthy appearing, comfortable, no acute distress and well developed Nutritional Appearance: well nourished and obese Orientation: alert and awake Resp Effort & Inspection: normal respiratory effort, able to speak in complete sentences and no respiratory distress Cardio Rate: regular rate Rhythm: regular rhythm GI Inspection: obesity Palpation: soft and tender (Patient has scant amount of blood in umbilicus, small abrasion noted superi) Skin Trauma: abrasion (in umbilicus, no evidence of infection) Neuro General: alert and awake Cognition: normal cognition Speech: speech normal Gait: normal gait Sensory Exam: no sensory deficits noted Psych Appearance: grossly normal and well kempt Mental Status: mental status grossly normal Speech and Movement: speech and movement normal
== END 2019-05-26 09:02 | disposition home or self-care (01) ==
PROVIDERS: Emergency Provider Physician Assistant; PCP Family Medicine
DX: S30.811A Abrasion of abdominal wall, initial encounter (principal); X58.XXXA Exposure to other specified factors, initial encounter
CPT/HCPCS: 99281

== ENCOUNTER 2019-06-14 17:24 | Emergency (ER) | payer MEDICARE, MEDICAID, SELFPAY ==
[2019-06-14 17:31] VITALS: BP 136/86; PULSE 97; RESP 22; TEMP 37.2; O2SAT 98
[2019-06-14 17:45] VITALS: RESP 20
--- NOTE | 2019-06-14 18:13 | DI.RAD_ITS ---
EXAM: XR KNEE RT 4V AP,LAT,JOEY,PAT INDICATION: pain, ttp anterior inferior. COMPARISON: XR knee LT 3V AP,lat,jeoy from 07/06/2018 TECHNIQUE: 2D digital imaging was performed. FINDINGS: No acute fracture or joint effusion is seen. There is a stable deformity of the proximal fibula pre sumably related to an old fracture. The joint spaces are well maintained. IMPRESSION: No acute abnormality.
--- NOTE | 2019-06-14 18:13 | DI.RAD_ITS ---
EXAM: XR CHEST 2V PA LATERAL INDICATION: chest pain. COMPARISON: CHEST 2 VIEWS PA,LAT from 04/01/2015 TECHNIQUE: 2D digital imaging was performed. FINDINGS: The exam is mildly limited by patient body habitus. The cardiac and mediastinal contours have a norm al appearance. The lungs are well inflated and clear. No infiltrate, effusion or pneumothorax is se en. IMPRESSION: Negative chest x-ray
--- NOTE | 2019-06-14 18:24 | ED.GENADUL_ITS ---
Discharge Plan Disposition Patient Disposition: HOME Discharge Details Chief Complaint: GenMedical Clinical Impression: Chest pain, Knee pain, right, Near syncope Primary Care Provider: Barron Joyce ED Provider: Edgard Vo Home Meds and New Rx's Prescriptions: No Action One Daily Calcium/Iron 1 EACH tablet 1 ea PO DAILY RF: 0 trazodone 50 MG tablet 50 mg PO HS Qty: 7 RF: 0 melatonin [Melatin] 3 MG tablet 9 mg PO HS Qty: 21 RF: 0 cyclobenzaprine 10 mg tablet 10 mg PO TID PRN (Reason: muscle spasm) Qty: 10 RF: 0 acetaminophen [Mapap Extra Strength] 500 MG tablet 1,000 mg PO Q6H 5 Days Qty: 60 RF: 0 Ibuprofen [Motrin Ib] 200 MG Tablet 600 mg PO Q6H 5 Days Qty: 60 RF: 0 amoxicillin 500 mg tablet 500 mg PO BID Qty: 20 RF: 0 gabapentin 300 MG capsule 600 mg PO TID RF: 0 Vraylar 1.5 MG capsule 3 tab PO DAILY AM RF: 0 risperidone 1 MG tablet 6 mg PO DAILY RF: 0 Discharge Instructions Instructions: Chest Pain (ED), Near Syncope (ED) Additional Instructions: Please discuss your medications with your doctor. A complete medication reconciliation could not be performed today. Please start taking aspirin 81 mg daily. Please contact your primary care physician to arrange follow-up. Call first thing on Sunday. You should ideally have a outpatient stress test performed in the next 72 hours. You may also benefit from a outpatient nuclear medicine physician to assess for arrhythmia. Return to the ER for any worsening or new concerning symptoms. Referrals: Barron Joyce [Primary Care Provider] - Discharge Data Discharge Date/Time-TO BE ENTERED AT DEPARTURE: 06/14/19 21:30 Medical Decision Making 19:25 --29-year-old male here with near syncopal episode where he collapsed to the ground and injured his right knee. He has had some chest pain after this episode this been intermittent. Patient is currently asymptomatic other than knee pain. He is hemodynamically stable, saturating well in no respiratory distress. Patient is neurologically intact. Unclear etiology for near syncope. Patient not seem to have any symptoms prior. Consider arrhythmia. Patient has had some intermittent chest discomfort. Consider ACS. Screening ECG was reviewed and interpreted by me: Normal sinus rhythm 93 bpm, subtle ST depressions noted lead I, II, V5 and V6, these are unchanged from prior EKG 12/15/2017. Will check troponin. Low risk for PE. Will obtain d-dimer. Consider fracture of the knee versus dislocation and relocation of patella. Plan to obtain x-ray. --Labs reviewed and nondiagnostic. Plan for delta troponin. --Patient reassessed and is remained stable. He notes completely asymptomatic. Patient up and ambulating around the emergency department without difficulty. Chest x-ray was reviewed and interpreted by radiology: No acute findings. Knee x-ray was reviewed and interpreted by radiology: No acute findings. No change in apex posterior bowing proximal fibula likely representing an old injur y. Delta trop neg. ddimer neg. Patient reassessed and has remained stable. All results discussed with the patient. Disposition decision was made weighing the risks and benefits of hospitalization versus outpatient treatment, the risk for further decompensation, and the patient's wishes. The patient was stable and requested discharge. Prior to discharge, my usual and customary return precautions were reviewed with the patient - this included follow-up instructions and reason to return to the emergency department if condition worsens, does not improve as expected, or other new concerns arise. HPI General Mode of arrival: ambulatory . Date/Time Provider Initiated Documentation: 06/14/19 17:36 . Limitations to Documentation: no limitations . Information obtained by: patient . HPI Narrative: 29-year-old male with medical history listed of anxiety, bipolar disorder, schizophrenia, here with chief complaint of knee pain. Patient notes right knee pain that started just prior to arrival. Patient states that in the past he has had a dislocated patella and thinks that today he may have dislocated it and then it spontaneously relocated. He states that he suddenly felt dizzy and collapsed to the ground. He states that he did not lose consciousness. During the spell, he thinks his patella dislocated when he landed on his knee. Patient is a poor historian but notes that he has intermittent dizzy spells every few days chronically. Patient also notes some intermittent chest discomfort after this episode. He has no chest pain at this time. He denies shortness of breath at this time. No recent immobility. No calf pain. Related Data Home Medications Medication Instructions Recorded Confirmed One Daily Calcium/Iron 1 ea PO DAILY 03/24/17 05/26/19 melatonin [Melatin] 9 mg PO HS #21 03/24/17 05/26/19 trazodone 50 mg PO HS #7 03/24/17 06/14/19 Vraylar 3 tab PO DAILY AM 03/16/18 05/26/19 gabapentin 600 mg PO TID 03/16/18 05/26/19 risperidone 6 mg PO DAILY 09/05/18 06/14/19 Ibuprofen [Motrin Ib] 600 mg PO Q6H 5 Days #60 tablet 02/23/19 05/26/19 acetaminophen [Mapap Extra 1,000 mg PO Q6H 5 Days #60 tab 02/23/19 05/26/19 Strength] cyclobenzaprine 10 mg PO TID PRN #10 tab 02/23/19 04/22/19 amoxicillin 500 mg PO BID #20 tab 04/28/19 Previous Rx's Medication Instructions Recorded melatonin [Melatin] 9 mg PO HS #21 03/24/17 trazodone 50 mg PO HS #7 03/24/17 Ibuprofen [Motrin Ib] 600 mg PO Q6H 5 Days #60 tablet 02/23/19 acetaminophen [Mapap Extra 1,000 mg PO Q6H 5 Days #60 tab 02/23/19 Strength] cyclobenzaprine 10 mg PO TID PRN #10 tab 02/23/19 amoxicillin 500 mg PO BID #20 tab 04/28/19 Allergies Allergy/AdvReac Type Severity Reaction Status Date / Time aripiprazole [From Abilify] AdvReac Severe Headache Verified 06/14/19 17:38 General Stated Complaint: GenMedical RAI: 3 Review of Systems All systems reviewed & are unremarkable except as noted in HPI and below Constitutional Constitutional: Denies fever(s) Cardiovascular Cardiovascular: Reports as per HPI and Denies dyspnea Respiratory Respiratory: Denies dyspnea PFSH Social History Smoking/Tobacco Use Status: Never Alcohol Intake: never Drug use: Never Substance use type: does not use Do you feel safe at home: Yes Do you feel safe in your relationship?: Yes Exam Const General: cooperative and no acute distress Nutritional Appearance: obese morbidly obese Orientation: alert and awake HENMT Mouth: moist mucous membranes Throat: posterior oropharynx normal Eyes Conjunctivae: normal conjunctivae Sclera: normal sclerae Resp Auscultation: clear to auscultation bilaterally, no rales, no rhonchi and no wheezes Cardio Jugular venous pressure: no JVD Rate: regular rate and not tachycardic Rhythm: regular rhythm Pulses: dorsalis pedis pulses present on the right 2+ GI Palpation: soft, not firm, no guarding, no masses, not rigid and nontender Skin General skin exam: no rashes or lesions noted Neuro General: alert, awake, oriented x3, tone normal, no focal motor deficits and CN's II-XI intact bilaterally Cranial Nerves: CN's II-XI intact bilaterally Speech: speech normal Motor: strength 5/5 throughout Sensory Exam: no sensory deficits noted Extrem General: no calf tenderness and no edema Right lower extremity: knee Details: tenderness Location: of the proximal tibia Details: laterally; ROM limited (Hurts to flex or extend his knee) Course Vital Signs Vital signs: Vital Signs Temperature 37.2 C 06/14/19 17:31 Pulse 97 H 06/14/19 17:31 Respiratory Rate 22 06/14/19 17:31 Blood Pressure 136/86 06/14/19 17:31 Pulse Oximetry 98 06/14/19 17:31 Temperature 37.2 C 06/14/19 17:31 Temperature Source Skin 06/14/19 17:31 Pulse 97 H 06/14/19 17:31 Respiratory Rate 20 06/14/19 17:45 Respiratory Effort Non-Labored 06/14/19 17:45 Respiratory Depth Normal 06/14/19 17:45 Respiratory Pattern Normal 06/14/19 17:45 Blood Pressure 136/86 06/14/19 17:31 Blood Pressure Position Sitting 06/14/19 17:31 Pulse Oximetry 98 06/14/19 17:31 Oxygen Delivery Method Room Air 06/14/19 17:31 Oxygen Flow Rate 0 06/14/19 17:31 Pain Level 0 06/14/19 17:31
[2019-06-14 18:38] LABS: Abs Immature Grans 0.04 k/cumm (0.0-0.09); Absolute Basophil Count 0.02 k/cumm (0.0-0.2); Absolute Eosinophil Count 0.07 k/cumm (0.0-0.7); Absolute Lymphocyte Count 1.72 k/cumm (1.2-3.4); Absolute Monocyte Count 0.72 k/cumm (0.11-0.7); Absolute Neutrophil Count 5.49 k/cumm (1.2-6.7); Basophils % 0.2; Eosinophils % 0.9; HCT 38.7 % (40.0-50.0); HGB 12.9 g/dL (13.5-17.5); Immature Grans % 0.5; Lymphocytes % 21.3; Mean Corp. HGB Concentration 33.3 g/dL (32.0-36.0); Mean Corpuscular Hemoglobin 31.2 pg (27.0-33.0); Mean Corpuscular Volume 93.7 fL (80-95); Mean Platelet Volume 9.6 fL (8.0-11.0); Monocytes % 8.9; Neutrophils % 68.2; Platelet Count 238 x1000/uL (130-400); RBC 4.13 m/cumm (4.50-6.00); White Blood Cell Count 8.06 k/cumm (4.4-10.8)
[2019-06-14] MEDS: Ibuprofen 400 MG TAB PO (18:45)
[2019-06-14 18:47] LABS: ALT 53 U/L (16-63); AST 29 U/L (15-37); Albumin 3.7 g/dL (3.4-5.0); Alkaline Phosphatase 87 U/L (46-116); Anion Gap 11.3 mmol/L (3-11); BUN 9 mg/dL (7-18); Bilirubin, Total 0.4 mg/dL (0.2-1.0); CO2 26.7 mmol/L (21.0-32.0); CREATININE 1.23 mg/dL (0.70-1.30); Calcium 8.7 mg/dL (8.5-10.1); Chloride 104 mmol/L (98-107); Glucose 103 mg/dL (74-106); Potassium 3.6 mmol/L (3.5-5.1); Sodium 142 mmol/L (136-145); Total Protein 6.9 g/dL (6.4-8.2); Troponin I < 0.05 ng/Ml (<0.06)
[2019-06-14 19:06] LABS: D-Dimer 184 ng/mlFEU (<500)
--- NOTE | 2019-06-14 19:12 | DI.VRAD_ITS ---
PROCEDURE INFORMATION: Exam: XR Chest, 2 Views Exam date and time: 06/14/2019 7:04 PM Age: 29 years old Clinical history: Chest pain TECHNIQUE: Imaging protocol: XR of the chest Views: 2 views. COMPARISON: CR CHEST 2 VIEWS PA,LAT 04/01/2015 1:50 PM FINDINGS: Lungs: Unremarkable. No consolidation. Pleural space: Unremarkable. No pleural effusion. No pneumothorax. Heart/Mediastinum: Unremarkable. No cardiomegaly. Bones/joints: Unremarkable. IMPRESSION: No acute findings. Dictated and Authenticated by: Steve Juárez MD. Ordering:BENITO Rene MD
--- NOTE | 2019-06-14 19:54 | DI.VRAD_ITS ---
PROCEDURE INFORMATION: Exam: XR Left Knee Exam date and time: 06/14/2019 7:03 PM Age: 29 years old Clinical history: Knee; Right; Patient HX: Pain ttp ant infer TECHNIQUE: Imaging protocol: XR Left knee. Views: 4 or more views. COMPARISON: CR XR knee LT 3V AP,lat,glendy 07/06/2018 11:21 PM FINDINGS: Bones/joints: There is mild apex posterior bowing of the proximal tibia likely due to previous injury and unchanged since 07/06/2018. No evidence of acute fracture or dislocation. Soft tissues: Normal. IMPRESSION: No acute findings. No change in apex posterior bowing proximal fibula likely representing an old injury. Dictated and Authenticated by: Steve Juárez MD. Ordering:BENITO Rene MD
--- NOTE | 2019-06-14 20:07 | NUR.NOTE ---
Nursing Note: Pt currently awaiting results of xrays. Pt given a turkey sandwich and is ambulating without pain or change in gait to bathroom and around the ED. No other needs at this time.
--- NOTE | 2019-06-14 20:57 | NUR.NOTE ---
Nursing Note:@nd Troponin drawn and taken to lab. Awaiting result. Pt remains calm and cooperative with his care.
[2019-06-14 21:13] LABS: Troponin I < 0.05 ng/Ml (<0.06)
== END 2019-06-14 21:30 | disposition home or self-care (01) ==
PROVIDERS: Emergency Provider Student in an Organized Health Care Education/Training Program; PCP Family Medicine
DX: M25.561 Pain in right knee (principal); R07.9 Chest pain, unspecified; R42 Dizziness and giddiness; W19.XXXA Unspecified fall, initial encounter
CPT/HCPCS: 36415; 80053; 93005; 99285; 71046; 73564; 84484; 85025; 85379; 85730; 93010; 99284

== ENCOUNTER 2019-07-30 19:52 | Emergency (ER) | payer MEDICARE, MEDICAID, SELFPAY ==
[2019-07-30 19:56] VITALS: BP 120/60; PULSE 93; RESP 18; TEMP 37.1; O2SAT 97
[2019-07-30 20:34] LABS: Abs Immature Grans 0.04 k/cumm (0.0-0.09); Absolute Basophil Count 0.01 k/cumm (0.0-0.2); Absolute Eosinophil Count 0.09 k/cumm (0.0-0.7); Absolute Lymphocyte Count 1.76 k/cumm (1.2-3.4); Absolute Monocyte Count 0.57 k/cumm (0.11-0.7); Absolute Neutrophil Count 5.41 k/cumm (1.2-6.7); Basophils % 0.1; Eosinophils % 1.1; HCT 39.4 % (40.0-50.0); HGB 12.9 g/dL (13.5-17.5); Immature Grans % 0.5 %; Lymphocytes % 22.3; Mean Corp. HGB Concentration 32.7 g/dL (32.0-36.0); Mean Corpuscular Hemoglobin 30.5 pg (27.0-33.0); Mean Corpuscular Volume 93.1 fL (80-95); Mean Platelet Volume 9.4 fL (8.0-11.0); Monocytes % 7.2; Neutrophils % 68.8; Platelet Count 222 x1000/uL (130-400); RBC 4.23 m/cumm (4.50-6.00); RBC Distribution Width 13.9 % (11.8-14.1); White Blood Cell Count 7.88 k/cumm (4.4-10.8)
[2019-07-30] MEDS: Omnipaque 350 MG/ML 100 ML BTL IJ (20:37)
[2019-07-30] MEDS: Omnipaque 350 MG/ML 50 ML BTL IJ (20:38)
--- NOTE | 2019-07-30 20:39 | DI.CT_ITS ---
EXAM: CT ABDOMEN PELVIS W CLINICAL HISTORY: morbidly obese, umbilical discharge w/ blood+puss TECHNIQUE: The examination is technically limited due to the patient's size. 100 cc of Omnipaque 350 was injected intravenously. COMPARISON: No exams were available for comparison FINDINGS: Visualized lung bases are clear. Probable hepatic steatosis. Gallbladder poorly seen. No gross s plenic abnormality. Pancreas appears intact. Abdominal aorta is of normal diameter. No gross hydro nephrosis or urinary tract calcification. Small fat containing umbilical hernia noted. Appendix marcos ssly unremarkable. No evidence of bowel obstruction. No abdominal or pelvic adenopathy. IMPRESSION: No evidence of acute intra-abdominal process. Small fat containing umbilical hernia.
--- NOTE | 2019-07-30 20:39 | W.ED.GENAD ---
Discharge Plan Disposition Patient Disposition: HOME Condition: Good Discharge Details Chief Complaint: RashLesion Clinical Impression: Hernia, umbilical Primary Care Provider: Barron Joyce ED Provider: Tim Bonilla Home Meds and New Rx's Prescriptions: No Action One Daily Calcium/Iron 1 EACH tablet 1 ea PO DAILY RF: 0 trazodone 50 MG tablet 50 mg PO HS Qty: 7 RF: 0 melatonin [Melatin] 3 MG tablet 9 mg PO HS Qty: 21 RF: 0 cyclobenzaprine 10 mg tablet 10 mg PO TID PRN (Reason: muscle spasm) Qty: 10 RF: 0 acetaminophen [Mapap Extra Strength] 500 MG tablet 1,000 mg PO Q6H 5 Days Qty: 60 RF: 0 Ibuprofen [Motrin Ib] 200 MG Tablet 600 mg PO Q6H 5 Days Qty: 60 RF: 0 gabapentin 300 MG capsule 600 mg PO TID RF: 0 Vraylar 1.5 MG capsule 3 tab PO DAILY AM RF: 0 risperidone 1 MG tablet 6 mg PO DAILY RF: 0 Discharge Instructions Instructions: Umbilical Hernia (ED) Additional Instructions: Please decrease the amount of times that you try to clean the bellybutton. Do it once weekly and be extremely gently when you do it do not push anything deeply inside your bellybutton. Please follow-up with surgery when they contact you for your appointment. If you notice any worsening of your symptoms, or any new symptoms such as vomiting, diarrhea, fever, chills, shortness of breath, chest pain, numbness, weakness, or fainting , please return immediately to the emergency department for reevaluation. Please follow up with your primary care provider as soon as possible for reassessment and reevaluation. As always, it was a pleasure participating in your medical care today. Referrals: Barron Joyce [Primary Care Provider] - Medical Decision Making This is a pleasant 29-year-old male with a past medical history of anxiety, bipolar, schizophrenia, and morbid obesity who presents for bellybutton drainage for the last month and a half. He cleans it daily. He states that the drainage is has pus and blood. It is mild and minimal. He denies any fever, chills or significant pain. No bowel or bladder changes. No nausea vomiting or diarrhea. Exam demonstrates a well cleaned umbilicus, no significant redness or cellulitis. Utilizing surgical long nasal speculum I was able to visualize the base of the umbilicus which shows no evidence of significant infection but does show a very small amount of skin separation at the very base with very small amount of adipose tissue exposed with the total length of this area being roughly 1 to 2 mm at most. I am uncertain as to the reason or etiology for this. It may be iatrogenic from his cleaning, or may be secondary to the tensile stress of his body habitus. Differential also does include but less likely a fistula, versus an underlying abscess I cannot be visualized secondary to the patient's body habitus. We will get further radiographic imaging, basic labs and reassess. [address] scan results have returned and demonstrate evidence of a small fat-containing umbilical hernia, no evidence of abscess. No fat stranding. Repeat exam continues to demonstrate no evidence of significant tenderness. Labs show no evidence of elevated white count or electrolyte abnormalities. At this time I see no clinical indication for antibiotics. There is no evidence of fistula. I feel that the mild discharge is likely from the small skin tear that he has the internal aspect of the umbilicus. I do not think at this time that this is clinically related to the hernia. However because of the patient's concerns we will place a referral for outpatient surgery. I had a very long discussion with the patient repeating multiple times the findings, plan, and my thoughts. He demonstrates understanding. I have extensively reviewed the treatment plan and discharge instructions with the patient. I have addressed all patient concerns at this time. The patient was made aware of what symptoms to monitor for that would warrant a return to the emergency department. Discussed the plan with the patient, they demonstrate verbal understanding and agreement with our assessment and plan at this time. FINDINGS: Lungs: The visualized portions of the lung bases are clear. Liver: There is hepatomegaly and fatty infiltration of the liver. There are no focal liver lesions present. Gallbladder and bile ducts: Normal. No calcified stones. No ductal dilation. Pancreas: Normal. No ductal dilation. Spleen: Normal. No splenomegaly. Adrenals: Normal. No mass. Kidneys and ureters: Normal. No hydronephrosis. Stomach and bowel: Unremarkable. No obstruction. No mucosal thickening. Appendix: A normal appendix is identified. Intraperitoneal space: Unremarkable. No free air. No significant fluid collection. Vasculature: Unremarkable. No abdominal aortic aneurysm. Lymph nodes: Unremarkable. No enlarged lymph nodes. Bladder: Unremarkable as visualized. Reproductive: Unremarkable as visualized. Bones/joints: Unremarkable. No acute fracture. Soft tissues: There is a small fat-containing umbilical hernia. Other findings: No evidence of an abscess. IMPRESSION: Small fat containing umbilical hernia. No evidence of an abscess. No other acute findings. Thank you for allowing us to participate in the care of your patient. Dictated and Authenticated by: Meron Schwarz MD 07/30/2019 9:00 PM Eastern Time ([place] & [place]) HPI General Date/Time Provider Initiated Documentation: 07/30/19 19:57. HPI Narrative: This is a 29-year-old male with a past medical history of anxiety, bipolar, schizophrenia, and morbid obesity who presents today for evaluation of umbilical drainage. Patient states that for the last 1-1/2 months he has had mild drainage from his bellybutton. He cleans it on a daily basis but he has noticed what he describes as pus and blood coming out every day. In small amounts. He denies any pain, fever or chills. No nausea vomiting or diarrhea. He denies inserting any objects in there aside for cleaning. He denies any feculent odor. He denies any aggravating or modifying factors otherwise. No other complaints at this time. Related Data Home Medications Medication Instructions Recorded Confirmed One Daily Calcium/Iron 1 ea PO DAILY 03/24/17 07/30/19 melatonin [Melatin] 9 mg PO HS #21 03/24/17 07/30/19 trazodone 50 mg PO HS #7 03/24/17 07/30/19 Vraylar 3 tab PO DAILY AM 03/16/18 07/30/19 gabapentin 600 mg PO TID 03/16/18 07/30/19 risperidone 6 mg PO DAILY 09/05/18 07/30/19 Ibuprofen [Motrin Ib] 600 mg PO Q6H 5 Days #60 tablet 02/23/19 07/30/19 acetaminophen [Mapap Extra 1,000 mg PO Q6H 5 Days #60 tab 02/23/19 07/30/19 Strength] cyclobenzaprine 10 mg PO TID PRN #10 tab 02/23/19 07/30/19 Previous Rx's Medication Instructions Recorded melatonin [Melatin] 9 mg PO HS #21 03/24/17 trazodone 50 mg PO HS #7 03/24/17 Ibuprofen [Motrin Ib] 600 mg PO Q6H 5 Days #60 tablet 02/23/19 acetaminophen [Mapap Extra 1,000 mg PO Q6H 5 Days #60 tab 02/23/19 Strength] cyclobenzaprine 10 mg PO TID PRN #10 tab 02/23/19 Allergies Allergy/AdvReac Type Severity Reaction Status Date / Time aripiprazole [From Abilify] AdvReac Severe Headache Verified 07/30/19 20:35 General Stated Complaint: RashLesion RAI: 4 Review of Systems All systems reviewed & are unremarkable except as noted in HPI and below PFSH Social History Smoking/Tobacco Use Status: Never Alcohol Intake: never Drug use: Never Substance use type: does not use Do you feel safe at home: Yes Do you feel safe in your relationship?: Yes Exam Narrative Exam Narrative: 1.Const: Well-nourished, Well-developed, appearing stated age 2.Eyes: PERRL, no conjunctival injection, and symmetrical lids. 3.ENT: Atraumatic external nose and ears. Moist MM. Neck: Symmetric, trachea midline, No thyromegaly. 4.CVS: +S1/S2, No murmurs or gallops. Peripheral pulses 2+ and equal in all extremities. Brisk capillary refill in all extremities. 5.RESP: Unlabored respiratory effort. Clear to auscultation bilaterally. No wheezes rales or rhonchi 6.GI: Soft, Nontender/Nondistended, No hepatosplenomegaly. No guarding or rebound. Abdomen is notably obese, evaluation of the bellybutton utilizing extra long surgical nasal speculum reveals evidence of a well cleaned umbilicus, at the base of the umbilicus there does appear to be a small amount of serosanguineous drainage, as well as a questionably small amount of exposed adipose tissue when the area is gently . Total area of exposed adipose is likely 1 to 2 mm at max. No evidence of significant purulent drainage, no erythema, no evidence of feculent discharge. No signs of significant severe cellulitis. No evidence of foreign body. 7.MSK: Normocephalic/Atraumatic, Extremities w/o deformity or ttp No cyanosis or clubbing, Normal movement of all extremities 8.Skin: Warm, Dry. No rashes or lesions. 9.Neuro: medical staff assistant II-XII grossly intact. Sensation grossly intact, no focal neurologic deficits. 10.Psych: (AAO) x3. Appropriate mood and affect Course Vital Signs Vital signs: Vital Signs Temperature 37.1 C 07/30/19 19:56 Pulse 93 H 07/30/19 19:56 Respiratory Rate 18 07/30/19 19:56 Blood Pressure 120/60 07/30/19 19:56 Pulse Oximetry 97 07/30/19 19:56 Temperature 37.1 C 07/30/19 19:56 Temperature Source Skin 07/30/19 19:56 Pulse 93 H 07/30/19 19:56 Respiratory Rate 18 07/30/19 19:56 Respiratory Effort Non-Labored 07/30/19 20:01 Blood Pressure 120/60 07/30/19 19:56 Blood Pressure Position Sitting 07/30/19 19:56 Pulse Oximetry 97 07/30/19 19:56 Oxygen Delivery Method Room Air 07/30/19 19:56 Oxygen Flow Rate 0 07/30/19 19:56 Pain Level 0 07/30/19 19:56 Lab/Test Results Lab/Test Results: Laboratory Tests Range/Units 07/30/19 20:20 WBC (4.4-10.8) k/cumm 7.88 RBC (4.50-6.00) m/cumm 4.23 L Hgb (13.5-17.5) g/dL 12.9 L Hct (40.0-50.0) % 39.4 L MCV (80-95) fL 93.1 MCH (27.0-33.0) pg 30.5 MCHC (32.0-36.0) g/dL 32.7 RDW (11.8-14.1) % 13.9 Plt Count (130-400) x1000/uL 222 MPV (8.0-11.0) fL 9.4 Immature Gran % % 0.5 Neutrophils % 68.8 Lymphocytes % 22.3 Monocytes % 7.2 Eosinophils % 1.1 Basophils % 0.1 Absolute Neutrophils (1.2-6.7) k/cumm 5.41 Absolute Lymphocytes (1.2-3.4) k/cumm 1.76 Absolute Monocytes (0.11-0.7) k/cumm 0.57 Absolute Eosinophils (0.0-0.7) k/cumm 0.09 Absolute Basophils (0.0-0.2) k/cumm 0.01
[2019-07-30 20:41] LABS: ALT 46 U/L (16-63); AST 30 U/L (15-37); Albumin 3.5 g/dL (3.4-5.0); Alkaline Phosphatase 91 U/L (46-116); Anion Gap 10.5 mmol/L (3-11); BUN 10 mg/dL (7-18); Bilirubin, Total 0.4 mg/dL (0.2-1.0); CO2 26.5 mmol/L (21.0-32.0); CREATININE 1.25 mg/dL (0.70-1.30); Calcium 8.6 mg/dL (8.5-10.1); Chloride 104 mmol/L (98-107); Glucose 113 mg/dL (74-106); Potassium 3.6 mmol/L (3.5-5.1); Sodium 141 mmol/L (136-145); Total Protein 6.7 g/dL (6.4-8.2)
--- NOTE | 2019-07-30 21:01 | DI.VRAD_ITS ---
PROCEDURE INFORMATION: Exam: CT Abdomen And Pelvis With Contrast Exam date and time: 07/30/2019 8:36 PM Age: 29 years old Clinical indication: Abdominal pain; Localized; Other: Umbulical pain; Patient HX: Patient explains orange puss coming out of belly button x2 months. TECHNIQUE: Imaging protocol: Computed tomography of the abdomen and pelvis with intravenous contrast. Contrast material: OMNIPAQUE 350; Contrast volume: 150 ml; Contrast route: IV; COMPARISON: No relevant prior studies available. FINDINGS: Lungs: The visualized portions of the lung bases are clear. Liver: There is hepatomegaly and fatty infiltration of the liver. There are no focal liver lesions present. Gallbladder and bile ducts: Normal. No calcified stones. No ductal dilation. Pancreas: Normal. No ductal dilation. Spleen: Normal. No splenomegaly. Adrenals: Normal. No mass. Kidneys and ureters: Normal. No hydronephrosis. Stomach and bowel: Unremarkable. No obstruction. No mucosal thickening. Appendix: A normal appendix is identified. Intraperitoneal space: Unremarkable. No free air. No significant fluid collection. Vasculature: Unremarkable. No abdominal aortic aneurysm. Lymph nodes: Unremarkable. No enlarged lymph nodes. Bladder: Unremarkable as visualized. Reproductive: Unremarkable as visualized. Bones/joints: Unremarkable. No acute fracture. Soft tissues: There is a small fat-containing umbilical hernia. Other findings: No evidence of an abscess. IMPRESSION: Small fat containing umbilical hernia. No evidence of an abscess. No other acute findings. Dictated and Authenticated by: Meron Schwarz MD. Ordering:SANDRA Dumont MD
--- NOTE | 2019-07-30 21:05 | NUR.NOTE ---
Nursing Note:faxedcreferal to surgery 07/30/19
--- NOTE | 2019-07-31 09:55 | NUR.NOTE ---
[facility] doesn't do surgery on patients with BMI of over 60, called ED to refer back to patient pcp. Referral faxed to Dr. Joyce, [facility].Nursing Note:
== END 2019-07-30 21:20 | disposition home or self-care (01) ==
PROVIDERS: Emergency Provider Student in an Organized Health Care Education/Training Program; PCP Family Medicine
DX: K42.9 Umbilical hernia without obstruction or gangrene (principal); S31.105A Unspecified open wound of abdominal wall, periumbilic region without penetration into peritoneal cavity, initial encounter; X58.XXXA Exposure to other specified factors, initial encounter; E66.01 Morbid (severe) obesity due to excess calories; Z68.44 Body mass index [BMI] 60.0-69.9, adult
CPT/HCPCS: 36415; 80053; 99285; 74177; 85025; 99284; J3490; Q9967

== ENCOUNTER 2020-09-15 19:04 | Outpatient (REF) | payer MEDICARE, MEDICAID, SELFPAY ==
[2020-09-15 16:20] LABS: ALT 43 U/L (16-63); AST 25 U/L (15-37); Albumin 3.7 g/dL (3.4-5.0); Alkaline Phosphatase 95 U/L (46-116); Anion Gap 10.8 mmol/L (3-11); BUN 10 mg/dL (7-18); Bilirubin, Total 0.4 mg/dL (0.2-1.0); CO2 26.2 mmol/L (21.0-32.0); CREATININE 1.2 mg/dL (0.70-1.30); Calcium 9.1 mg/dL (8.5-10.1); Calculated LDL 183 mg/dL (<100); Chloride 107 mmol/L (98-107); Cholesterol 250 mg/dL (<200); Glucose 99 mg/dL (74-106); HDL Cholesterol 38 mg/dL (40-60); Potassium 4.8 mmol/L (3.5-5.1); Sodium 144 mmol/L (136-145); Triglyceride 147 mg/dL (<150)
[2020-09-15 17:54] LABS: Hemoglobin A1C 5.8 % (<5.7)
== END 2020-09-15 19:05 | disposition home or self-care (01) ==
LOC: NCHCN 19:04
PROVIDERS: PCP Family Medicine; Visit Provider Family Medicine
DX: E66.01 Morbid (severe) obesity due to excess calories (principal); L08.82 Omphalitis not of newborn; R73.09 Other abnormal glucose; E78.89 Other lipoprotein metabolism disorders
CPT/HCPCS: 80053; 80061; 83036; 87070; 87205

== ENCOUNTER 2021-08-28 16:04 | Emergency (ER) | payer MEDICARE, MEDICAID, SELFPAY ==
[2021-08-28 16:19] VITALS: BP 143/100; PULSE 108; RESP 36; TEMP 36.3; O2SAT 96
[2021-08-28 16:28] VITALS: BP 143/100; PULSE 104; RESP 23; O2SAT 96
[2021-08-28 16:29] VITALS: PULSE 104; RESP 19; O2SAT 96
[2021-08-28 16:30] VITALS: PULSE 108; RESP 19; O2SAT 96
--- NOTE | 2021-08-28 16:30 | DI.CT_ITS ---
Exam(s) CT CHEST PE CTA EXAM: CT CHEST PE CTA CLINICAL HISTORY: chest discomfort, shortness of breath, obese. TECHNIQUE: Imaging Protocol: CT angiography of the chest was performed using pulmonary embolus ricky col. Multi planar reconstructions were performed. CONTRAST MATERIAL: Intravenous: Omnipaque 350 Contrast volume: 100 cc COMPARISON: CT CT ABDOMEN PELVIS W from 07/30/2019 FINDINGS: CHEST: PULMONARY ARTERIES: Less than optimal injection for evaluation of pulmonary arteries. There are no o bvious intraluminal filling defects to suggest acute pulmonary emboli. LUNGS: There are no infiltrates nor evidence of pulmonary infarction.. There are no pleural effusions . MEDIASTINUM: There is no hilar nor mediastinal adenopathy. Visualized thyroid unremarkable. CARDIAC: Heart size is upper normal. There is no pericardial effusion.Caliber of the thoracic aorta is within normal limits. There is no significant shift of the interventricular septum. PARTIALLY VISUALIZED UPPERMOST ABDOMEN: Hepatic steatosis. No adrenal masses. OSSEOUS: No significant osseous lesions.. IMPRESSION: 1. Less than optimal injection. No obvious pulmonary emboli.No evidence of pulmonary infarction. 2. No pulmonary infiltrates nor pleural effusions. 3. No intrathoracic adenopathy. Hepatic steatosis incidentally noted RADIATION DOSE DELIVERED: 973.32mGy.cm Total DLP DATA REPOSITORY: All CT scans at this facility are submitted to the National Radiology Data Registry (NRDR) Dose Index Registry (DIR) with the [employer] (A[employer]). RADIATION OPTIMIZATION: All CT scans at this facility use at least one of these dose optimization te chniques: automated exposure control; mA and/or kV adjustment per patient size (includes targeted exa ms where dose is matched to clinical indication); or iterative reconstruction.
--- NOTE | 2021-08-28 17:11 | ED.GENADUL_ITS ---
Discharge Plan Disposition Patient Disposition: HOME Condition: Stable Discharge Details Clinical Impression: Shortness of breath, Chest discomfort, Morbid obesity Primary Care Provider: Barron Joyce ED Provider: Edgard Vo Home Meds and New Rx's Prescriptions: Continued lidocaine 4 % cream 1 applic topical .COMPLEX RF: 0 atorvastatin 10 mg tablet 10 mg PO QHS RF: 0 metformin 500 mg tablet 500 mg PO DAILY RF: 0 acidophilus-pectin, citrus 25 million cell -100 mg tablet 2 tab PO DAILY RF: 0 topiramate 100 mg tablet 100 mg PO BID RF: 0 levomefolate calcium 15 mg capsule 15 mg PO DAILY RF: 0 multivitamin [One Daily Multivitamin] Tablet 1 tab PO DAILY RF: 0 nystatin 100,000 unit/gram cream 1 applic topical BID RF: 0 omega-3 fatty acids-fish oil 300-1,000 mg capsule 1 cap PO DAILY RF: 0 mupirocin 2 % ointment 1 applic topical BID RF: 0 albuterol sulfate [ProAir HFA] 90 mcg/actuation HFA aerosol inhaler 2 puff inhalation .Q4-6H PRNRF: 0 lamotrigine 200 mg tablet 200 mg PO DAILY RF: 0 gabapentin 400 mg capsule 800 mg PO TID RF: 0 One Daily Calcium/Iron 1 EACH tablet 1 ea PO DAILY RF: 0 melatonin [Melatin] 3 MG tablet 9 mg PO HS Qty: 21 RF: 0 cyclobenzaprine 10 mg tablet 10 mg PO TID PRN (Reason: muscle spasm) Qty: 10 RF: 0 Ibuprofen [Motrin Ib] 200 MG Tablet 600 mg PO Q6H 5 Days Qty: 60 RF: 0 zolpidem 10 mg tablet 10 mg PO HS RF: 0 budesonide-formoterol [Symbicort] 160-4.5 mcg/actuation HFA aerosol inhaler 1 puff INHALATION BID RF: 0 levomefolate calcium 15 mg tablet 15 mg PO DAILY RF: 0 trazodone 100 mg tablet 200 mg PO HS RF: 0 omega-3 fatty acids-fish oil [Fish Oil] 360-1,200 mg capsule 1 cap PO DAILY AM RF: 0 acidophilus-pectin, citrus 25 million cell -100 mg tablet 1 tab PO DAILY AM RF: 0 Vraylar 1.5 MG capsule 3 tab PO DAILY AM RF: 0 risperidone 1 MG tablet 6 mg PO DAILY RF: 0 Discontinued acetaminophen [Mapap Extra Strength] 500 MG tablet 1,000 mg PO Q6H 5 Days Qty: 60 RF: 0 Discharge Instructions Instructions: Obesity (ED), Dyspnea (ED) Additional Instructions: Your blood pressure was elevated today. Be sure to discuss this with your doctor. Please contact your primary care physician to arrange follow-up. Return to the ER immediately for any worsening or new concerning symptoms. Referrals: Barron Joyce [Primary Care Provider] - Medical Decision Making 1827 --31-year-old male with multiple medical problems here with acute worsening of chronic shortness of breath and pleuritic chest discomfort. Patient is saturating well and in no respiratory distress with clear lung sounds. He is tachycardic. Consider CHF as symptoms are worse with exertion and he does have some lower extremity edema. BNP reviewed and negative. Troponin negative. Consider acute pulmonary embolism. Plan to obtain CT of the chest. -- Labs reviewed and nondiagnostic. -- CTA chest interpreted by radiology: No acute findings. I suspect patient chronic shortness of breath is related to his morbid obesity. He would likely benefit from consultation with a education sales consultant. I have advised him to follow-up with his primary care physician regarding this. Patient reassessed: Tachycardia resolved. Patient is mildly hypertensive. He was informed of this and advised to follow-up with his primary care physician. Usual customary discharge directions otherwise reviewed the patient. ECG Data Attestation: I personally reviewed and interpreted this ECG (s) as follows: (Low voltage precordial leads, sinus rhythm 92 bpm, nondiagnostic.) HPI General Mode of arrival: ambulatory . Date/Time Provider Initiated Documentation: 08/28/21 16:30 . Limitations to Documentation: no limitations . Information obtained by: patient . HPI Narrative: 31-year-old male with multiple medical problems presents today with chief complaint of shortness of breath. Patient notes she has been having trouble breathing for a while . He states he has been having feelings of shortness of breath and difficulty breathing for years. Symptoms worse recently. He notes associated pleuritic discomfort described as burning in his lungs. Patient also notes a discomfort of difficulty with swallowing in his upper chest. Shortness of breath is worse with exertion. Patient has chronic lower extremity edema that waxes and wanes. Patient notes intermittent pain in legs bilaterally. Related Data Home Medications Medication Instructions Recorded Confirmed One Daily Calcium/Iron 1 ea PO DAILY 03/24/17 08/28/21 melatonin [Melatin] 9 mg PO HS #21 03/24/17 08/28/21 Vraylar 3 tab PO DAILY AM 03/16/18 08/28/21 risperidone 6 mg PO DAILY 09/05/18 08/28/21 Ibuprofen [Motrin Ib] 600 mg PO Q6H 5 Days #60 tablet 02/23/19 08/28/21 cyclobenzaprine 10 mg PO TID PRN #10 tab 02/23/19 08/28/21 acidophilus 25 million 2 tab PO DAILY 06/08/21 08/28/21 cell-pectin, citrus 100 mg tablet albuterol sulfate 90 mcg/actuation 2 puff INHALATION .Q4-6H PRN g 06/08/21 08/28/21 aerosol inhaler atorvastatin 10 mg tablet 10 mg PO QHS 06/08/21 08/28/21 gabapentin 400 mg capsule 800 mg PO TID cap 06/08/21 08/28/21 lamotrigine 200 mg tablet 200 mg PO DAILY 06/08/21 08/28/21 levomefolate calcium 15 mg capsule 15 mg PO DAILY 06/08/21 08/28/21 lidocaine 4 % topical cream 1 applic TOPICAL .COMPLEX 06/08/21 08/28/21 metformin 500 mg tablet 500 mg PO DAILY 06/08/21 08/28/21 multivitamin 1 tab PO DAILY 06/08/21 08/28/21 mupirocin 2 % topical ointment 1 applic TOPICAL BID 06/08/21 08/28/21 nystatin 100,000 unit/gram topical 1 applic TOPICAL BID 06/08/21 08/28/21 cream omega-3 fatty acids-fish oil 300 1 cap PO DAILY 06/08/21 08/28/21 mg-1,000 mg capsule topiramate 100 mg tablet 100 mg PO BID 06/08/21 08/28/21 acidophilus-pectin, citrus 1 tab PO DAILY AM 08/28/21 08/28/21 budesonide-formoterol [Symbicort] 1 puff INHALATION BID 08/28/21 08/28/21 levomefolate calcium 15 mg PO DAILY 08/28/21 08/28/21 omega-3 fatty acids-fish oil [Fish 1 cap PO DAILY AM 08/28/21 08/28/21 Oil] trazodone 200 mg PO HS 08/28/21 08/28/21 zolpidem 10 mg PO HS 08/28/21 08/28/21 Previous Rx's Medication Instructions Recorded melatonin [Melatin] 9 mg PO HS #21 03/24/17 Ibuprofen [Motrin Ib] 600 mg PO Q6H 5 Days #60 tablet 02/23/19 cyclobenzaprine 10 mg PO TID PRN #10 tab 02/23/19 Allergies Allergy/AdvReac Type Severity Reaction Status Date / Time aripiprazole [From Abilify] AdvReac Severe Headache Verified 08/28/21 17:37 General Stated Complaint: SOB RAI: 2 Review of Systems All systems reviewed & are unremarkable except as noted in HPI and below Constitutional Constitutional: Denies fever(s) Cardiovascular Cardiovascular: Reports dyspnea Respiratory Respiratory: Reports as per HPI, Denies cough and Reports dyspnea Gastrointestinal Gastrointestinal: Denies abdominal pain PFSH All Active Problems (Updated 08/28/21 @ 19:40 by Edgard Vo MD) Shortness of breath (Acute) Chest discomfort (Acute) Morbid obesity (Acute) Medical History Anemia Galactorrhea History of prediabetes Hyperlipidemia Insomnia Intermittent asthma Lactose intolerance Schizoaffective disorder Family History Mother , AT 49 YRS OLD Lung cancer Chronic mental illness Sister Hepatitis C Drug addict Sister , AT 29 OVERDOSE Hepatitis C Cancer Sister , AT 17 Down's syndrome Infant autism Brother Drug addict Hepatitis C Social History Smoking/Tobacco Use Status: Never Smoking risk assessment performed?: Yes Alcohol Intake: never Drug use: Never Substance use type: does not use Do you feel safe at home: Yes Do you feel safe in your relationship?: Yes Exam Const General: cooperative and no acute distress Nutritional Appearance: obese morbidly obese Orientation: alert and awake HENMT Head: normocephalic and atraumatic Mouth: moist mucous membranes Eyes Conjunctivae: normal conjunctivae Sclera: normal sclerae Neck Neck: trachea midline and supple Resp Auscultation: clear to auscultation bilaterally, no rales, no rhonchi and no wheezes Cardio Rate: tachycardic Rhythm: regular rhythm Heart Sounds: no gallops, no murmurs and no rubs Pulses: dorsalis pedis present bilaterally 2+ GI Palpation: soft, not firm, no guarding, no masses, not rigid and nontender Skin General skin exam: no rashes or lesions noted Neuro General: patient alert, patient awake, patient oriented x3 and tone normal Extrem General: edema (trace) Laterality: bilateral Psych Appearance: grossly normal Mental Status: mental status grossly normal Mood: anxious mood Course Vital Signs Vital signs: Vital Signs Temperature 36.3 C L 08/28/21 16:19 Pulse 108 H 08/28/21 16:19 Respiratory Rate 36 H 08/28/21 16:19 Blood Pressure 143/100 H 08/28/21 16:19 Pulse Oximetry 96 08/28/21 16:19 Temperature 36.3 C L 08/28/21 16:19 Temperature Source Skin 08/28/21 16:19 Pulse 108 H 08/28/21 16:19 Pulse 108 H 08/28/21 16:30 Respiratory Rate 19 08/28/21 16:30 Respiratory Effort 08/28/21 16:19 Blood Pressure 143/100 H 08/28/21 16:28 Blood Pressure Mean 110 08/28/21 16:28 Blood Pressure Position Supine 08/28/21 16:19 Pulse Oximetry 96 08/28/21 16:30 Oxygen Delivery Method Room Air 08/28/21 16:19 Oxygen Flow Rate 0 08/28/21 16:19 Pain Level 1 08/28/21 16:19
[2021-08-28 17:13] LABS: Abs Immature Grans 0.03 10^3/uL (0.0-0.06); Absolute Basophil Count 0.02 10^3/uL (0.0-0.2); Absolute Lymphocyte Count 1.74 10^3/uL (1.2-3.4); Absolute Neutrophil Count 5.07 10^3/uL (1.2-6.7); Basophils % 0.3; Eosinophils % 1.3; HCT 40.4 % (40.0-50.0); Immature Grans % 0.4; MCH 31.5 pg (27.0-33.0); MCHC 32.2 % (32.0-36.0); MCV 97.8 fL (80-95); MPV 9.4 fL (8.0-11.0); Monocytes % 7.9; Neutrophils % 67.1; Nucleated RBC 0 %; Platelet Count 194 10^3/uL (130-400); RBC 4.13 10^6/uL (4.36-5.78); RDW 13.6 % (11.8-14.1); RDW-SD 48.9 fL; WBC 7.56 10^3/uL (4.4-10.8)
[2021-08-28 17:35] LABS: ALT 58 U/L (16-63); AST 31 U/L (15-37); Albumin 3.5 g/dL (3.4-5.0); Alkaline Phosphatase 92 U/L (46-116); BUN 7 mg/dL (7-18); Bilirubin, Total 0.4 mg/dL (0.2-1.0); CREATININE 1.2 mg/dL (0.70-1.30); Calcium 8.4 mg/dL (8.5-10.1); Chloride 104 mmol/L (98-107); Glucose 130 mg/dL (74-106); Potassium 3.7 mmol/L (3.5-5.1); Sodium 140 mmol/L (136-145); Total Protein 6.9 g/dL (6.4-8.2)
[2021-08-28 17:36] LABS: Troponin I < 50 ng/L (<or=60)
[2021-08-28 18:17] LABS: NT-proBNP 109 pg/mL (<300)
[2021-08-28] MEDS: Omnipaque 350 MG/ML 100 ML BTL IJ (18:39)
[2021-08-28] MEDS: Normal Saline Flush 10 ML SYR IVP (18:41)
--- NOTE | 2021-08-28 18:54 | NUR.NOTE ---
Steve wishes to add Jelena Wilcox (biological mother) to his HIPPA information so that if she calls the hospital she can obtain updates surrounding his care. I reviewed the No visitor policy in the ER and the inpatient visitor policy if he were to be admitted. Rosario contacted the registration staff to see if they could update the HIPPA information on file, they said they are not able to do this over the phone.
[2021-08-28 19:07] VITALS: BP 150/100; PULSE 94; RESP 19; O2SAT 96
--- NOTE | 2021-08-28 19:13 | DI.VRAD_ITS ---
PROCEDURE INFORMATION: Exam: CTA Chest With Contrast Exam date and time: 08/28/2021 4:43 PM Age: 31 years old Clinical indication: Patient HX: Chest discomfort, shortness of breath, obese TECHNIQUE: Imaging protocol: Computed tomographic angiography of the chest with contrast. 3D rendering (Not supervised by radiologist): MIP and/or 3D reconstructed images were created by the technologist. Radiation optimization: All CT scans at this facility use at least one of these dose optimization techniques: automated exposure control; mA and/or kV adjustment per patient size (includes targeted exams where dose is matched to clinical indication); or iterative reconstruction. Contrast material: OMNIPAQUE 350; Contrast volume: 100 ml; Contrast route: INTRAVENOUS (IV); COMPARISON: CR XR CHEST 2V PA LATERAL 14/06/2019 18:51 FINDINGS: Limitations: Motion artifact and patient's body habitus degrades image quality. Pulmonary arteries: Normal. No pulmonary emboli. Aorta: Unremarkable. No aortic aneurysm. No aortic dissection. Lungs: Low lung volumes. Pleural spaces: Unremarkable. No pneumothorax. No pleural effusion. Heart: Unremarkable. No cardiomegaly. No pericardial effusion. Lymph nodes: Unremarkable. No enlarged lymph nodes. Liver: Hepatic steatosis. Bones/joints: Unremarkable for age. No acute fracture. Soft tissues: Unremarkable. IMPRESSION: No acute findings. Dictated and Authenticated by: Gabbie Carpenter MD. Ordering:BENITO Rene MD
--- NOTE | 2021-08-28 19:30 | RT.EKG_ITS ---
APPROVED REPORT Exam: Resting ECG Reason for Exam: sob Patient Location: E HR:92 bpm ECG Measurements Heart Rate 92 AXIS VA 169 P 51 QRSd 89 QRS 13 QT 371 T 35 QTc 461 Conclusion Sinus rhythm...normal P axis, V-rate 60- 99 Low voltage, precordial leads...precordial leads <1.0mV
== END 2021-08-28 20:09 | disposition home or self-care (01) ==
PROVIDERS: Emergency Provider Student in an Organized Health Care Education/Training Program; PCP Family Medicine
DX: R06.02 Shortness of breath (principal); R07.89 Other chest pain; E66.9 Obesity, unspecified; R00.0 Tachycardia, unspecified; I10 Essential (primary) hypertension
CPT/HCPCS: 36415; 71275; 80053; 93005; 99285; 83880; 84484; 85025; 93010; 99284; J3490

== ENCOUNTER 2022-01-08 15:04 | Emergency (ER) | payer MEDICARE, MEDICAID, SELFPAY ==
[2022-01-08 15:07] VITALS: BP 149/91; PULSE 102; RESP 16; TEMP 36.7; O2SAT 95
--- NOTE | 2022-01-08 15:56 | ED.GENADUL_ITS ---
Discharge Plan Disposition Patient Disposition: HOME Condition: Stable Discharge Details Clinical Impression: Umbilical discharge, Tinea cruris Primary Care Provider: Barron Joyce ED Provider: Brynn Barrera Home Meds and New Rx's Prescriptions: New nystatin [Nyamyc] 100,000 unit/gram powder 1 applic topical BID Qty: 60 3RF mupirocin 2 % ointment kit 1 applic topical BID Qty: 1 0RF Continued lidocaine 4 % cream 1 applic topical .COMPLEX Rx Instructions: 1 applic topical; as needed for blood draw or vaccine atorvastatin 10 mg tablet 10 mg PO QHS metformin 500 mg tablet 500 mg PO DAILY acidophilus-pectin, citrus 25 million cell -100 mg tablet 2 tab PO DAILY topiramate 100 mg tablet 100 mg PO BID levomefolate calcium 15 mg capsule 15 mg PO DAILY multivitamin [One Daily Multivitamin] Tablet 1 tab PO DAILY nystatin 100,000 unit/gram cream 1 applic topical BID omega-3 fatty acids-fish oil 300-1,000 mg capsule 1 cap PO DAILY mupirocin 2 % ointment 1 applic topical BID albuterol sulfate [ProAir HFA] 90 mcg/actuation HFA aerosol inhaler 2 puff inhalation .Q4-6H PRN lamotrigine 200 mg tablet 200 mg PO DAILY gabapentin 400 mg capsule 800 mg PO TID One Daily Calcium/Iron 1 EACH tablet 1 ea PO DAILY melatonin [Melatin] 3 MG tablet 9 mg PO HS Qty: 21 0RF cyclobenzaprine 10 mg tablet 10 mg PO TID PRN (Reason: muscle spasm) Qty: 10 0RF Ibuprofen [Motrin Ib] 200 MG Tablet 600 mg PO Q6H 5 Days Qty: 60 0RF zolpidem 10 mg tablet 10 mg PO HS budesonide-formoterol [Symbicort] 160-4.5 mcg/actuation HFA aerosol inhaler 1 puff INHALATION BID levomefolate calcium 15 mg tablet 15 mg PO DAILY trazodone 100 mg tablet 200 mg PO HS omega-3 fatty acids-fish oil [Fish Oil] 360-1,200 mg capsule 1 cap PO DAILY AM acidophilus-pectin, citrus 25 million cell -100 mg tablet 1 tab PO DAILY AM Vraylar 1.5 MG capsule 3 tab PO DAILY AM risperidone 1 MG tablet 6 mg PO DAILY Discharge Instructions Instructions: Skin Yeast Infection (ED) Additional Instructions: Allow your skin to air dry as much as possible Apply the nystatin powder immediately after showering, and try to apply it twice a day Continue to apply this for the next 14 to 21 days Apply mupirocin to your wound on her abdomen twice a day for the next 10 days Follow-up for recheck with your primary care physician next week and return earlier should you have new or worsening complaints Referrals: Barron Joyce [Primary Care Provider] - Discharge Data Discharge Date/Time-TO BE ENTERED AT DEPARTURE: 01/08/22 16:43 HPI General Date/Time Provider Initiated Documentation: 01/08/22 15:29 . HPI Narrative: This 31-year-old male with history of PTSD and schizoaffective disorder presents presents with groin and perineal rash that he has had intermittently for the past year and a half. He denies any fever or chills. He states that the rash is tender which is why he presents. He denies any known trauma recently to the affected area. He did attempt a single dose of antifungal and feels that it improved his symptoms, this was given to him by a friend. He denies any abdominal pain but does also report some bloody drainage of pus from his umbilicus. He states he was told previously that he has an umbilical hernia but he has not had any surgical intervention. Related Data Home Medications Medication Instructions Recorded Confirmed melatonin 3 mg tablet (Melatin) 9 mg PO HS ##21 03/24/17 08/28/21 fgyufaplxyvn-Lk-onst-minerals (One 1 ea PO DAILY 03/24/17 08/28/21 Daily Calcium/Iron tablet) cariprazine 1.5 mg capsule 3 tab PO DAILY AM 03/16/18 08/28/21 (Vraylar) risperidone 1 mg tablet 6 mg PO DAILY 09/05/18 08/28/21 Ibuprofen [Motrin Ib] 600 mg PO Q6H 5 days ##60 02/23/19 08/28/21 cyclobenzaprine 10 mg tablet 10 mg PO TID PRN muscle spasm #10 02/23/19 08/28/21 tabs acidophilus 25 million 2 tab PO DAILY 06/08/21 08/28/21 cell-pectin, citrus 100 mg tablet albuterol sulfate 90 mcg/actuation 2 puff inhalation .Q4-6H PRN 06/08/21 08/28/21 aerosol inhaler (ProAir HFA) atorvastatin 10 mg tablet 10 mg PO QHS 06/08/21 08/28/21 gabapentin 400 mg capsule 800 mg PO TID 06/08/21 08/28/21 lamotrigine 200 mg tablet 200 mg PO DAILY 06/08/21 08/28/21 levomefolate calcium 15 mg capsule 15 mg PO DAILY 06/08/21 08/28/21 lidocaine 4 % topical cream 1 applic topical .COMPLEX 06/08/21 08/28/21 metformin 500 mg tablet 500 mg PO DAILY 06/08/21 08/28/21 multivitamin (One Daily 1 tab PO DAILY 06/08/21 08/28/21 Multivitamin tablet) mupirocin 2 % topical ointment 1 applic topical BID 06/08/21 08/28/21 nystatin 100,000 unit/gram topical 1 applic topical BID 06/08/21 08/28/21 cream omega-3 fatty acids-fish oil 300 1 cap PO DAILY 06/08/21 08/28/21 mg-1,000 mg capsule topiramate 100 mg tablet 100 mg PO BID 06/08/21 08/28/21 acidophilus 25 million 1 tab PO DAILY AM 08/28/21 08/28/21 cell-pectin, citrus 100 mg tablet budesonide-formoterol HFA 160 1 puff inhalation BID 08/28/21 08/28/21 mcg-4.5 mcg/actuation aerosol inhaler (Symbicort) levomefolate calcium 15 mg tablet 15 mg PO DAILY 08/28/21 08/28/21 omega-3 fatty acids-fish oil 360 1 cap PO DAILY AM 08/28/21 08/28/21 mg-1,200 mg capsule (Fish Oil) trazodone 100 mg tablet 200 mg PO HS 08/28/21 08/28/21 zolpidem 10 mg tablet 10 mg PO HS 08/28/21 08/28/21 mupirocin 2 % ointment topical kit 1 applic topical BID #1 ea 01/08/22 nystatin 100,000 unit/gram topical 1 applic topical BID #60 grams 01/08/22 powder (Nyamyc) Previous Rx's Medication Instructions Recorded melatonin 3 mg tablet (Melatin) 9 mg PO HS ##21 03/24/17 Ibuprofen [Motrin Ib] 600 mg PO Q6H 5 days ##60 02/23/19 cyclobenzaprine 10 mg tablet 10 mg PO TID PRN muscle spasm #10 02/23/19 tabs mupirocin 2 % ointment topical kit 1 applic topical BID #1 ea 01/08/22 nystatin 100,000 unit/gram topical 1 applic topical BID #60 grams 01/08/22 powder ([facility]) Allergies Allergy/AdvReac Type Severity Reaction Status Date / Time cariprazine [From Vraylar] Allergy Severe Other (See Unverified 01/08/22 15:12 Comment) aripiprazole [From Abilify] AdvReac Severe Headache Verified 01/08/22 15:11 General Stated Complaint: RashLesion ARI: 4 Review of Systems All systems reviewed & are unremarkable except as noted in HPI and below PFSH All Active Problems (Updated 01/08/22 @ 19:26 by JHONATAN Allen) Umbilical discharge (Acute) Tinea cruris (Acute) Medical History Anemia Galactorrhea History of prediabetes Hyperlipidemia Insomnia Intermittent asthma Lactose intolerance Schizoaffective disorder Family History Mother , AT 49 YRS OLD Lung cancer Chronic mental illness Sister Hepatitis C Drug addict Sister , AT 29 OVERDOSE Hepatitis C Cancer Sister , AT 17 Down's syndrome Infant autism Brother Drug addict Hepatitis C Social History Smoking/Tobacco Use Status: Never Smoking risk assessment performed?: Yes Alcohol Intake: never Drug use: Never Substance use type: does not use Do you feel safe at home: Yes Do you feel safe in your relationship?: Yes Exam Const General: cooperative, comfortable and no acute distress Eyes Sclera: sclerae normal Resp Effort & Inspection: normal respiratory effort Cardio Rate: regular rate GI Other: Umbilicus without palpable hernia, some mild purulent drainage, nontender, no induration Male genitals images: 1. Macerated erythematous, serosanguineous drainage, no crepitus, malodorous 2. No evidence of Alethea's gangrene, no evidence of necrosis Skin Other: Erythema macerated evidence of tinea cruris Full body images: 1. purulent drainage, no erythema, non-tender Neuro General: patient alert Course Vital Signs Vital signs: Vital Signs Temperature 36.7 C 01/08/22 15:07 Pulse 102 H 01/08/22 15:07 Respiratory Rate 16 01/08/22 15:07 Blood Pressure 149/91 H 01/08/22 15:07 Pulse Oximetry 95 01/08/22 15:07 Temperature 36.7 C 01/08/22 15:07 Temperature Source Temporal Artery Scan 01/08/22 15:07 Pulse 102 H 01/08/22 15:07 Respiratory Rate 16 01/08/22 15:07 Respiratory Effort Non-Labored 01/08/22 15:11 Blood Pressure 149/91 H 01/08/22 15:07 Blood Pressure Position Sitting 01/08/22 15:07 Pulse Oximetry 95 01/08/22 15:07 Oxygen Delivery Method Room Air 01/08/22 15:07 Oxygen Flow Rate 0 01/08/22 15:07 Pain Level 4 01/08/22 15:07
--- NOTE | 2022-01-08 16:41 | NUR.NOTE ---
Rupesh Shannon called to talk to patient. patient had advised this nurse earlier that she did not want to see or speak to him. Rupesh proceeded to say that this nurse was lying to him and then screamed Youre lying you fucking cunt. security advised about situation in case he shows up. Rupesh has warrants out for his arrest at this time.
== END 2022-01-08 16:43 | disposition home or self-care (01) ==
PROVIDERS: Emergency Provider Physician Assistant; PCP Family Medicine
DX: B35.6 Tinea cruris (principal); L98.8 Other specified disorders of the skin and subcutaneous tissue; R21 Rash and other nonspecific skin eruption
CPT/HCPCS: 99283

== ENCOUNTER 2022-01-15 08:00 | Emergency (ER) | payer MEDICARE, MEDICAID, SELFPAY ==
[2022-01-15 08:03] VITALS: BP 140/93; PULSE 81; RESP 16; TEMP 36.8; O2SAT 97
--- NOTE | 2022-01-15 08:08 | W.ED.GENAD ---
Discharge Plan Disposition Patient Disposition: HOME Condition: Stable Discharge Details Clinical Impression: Perineal ulcer Primary Care Provider: Barron Joyce ED Provider: Lisseth Ch Home Meds and New Rx's Prescriptions: New nystatin 100,000 unit/gram powder 1 applic topical BID Qty: 60 0RF Continued lidocaine 4 % cream 1 applic topical .COMPLEX Rx Instructions: 1 applic topical; as needed for blood draw or vaccine atorvastatin 10 mg tablet 10 mg PO QHS metformin 500 mg tablet 500 mg PO DAILY acidophilus-pectin, citrus 25 million cell -100 mg tablet 2 tab PO DAILY topiramate 100 mg tablet 100 mg PO BID levomefolate calcium 15 mg capsule 15 mg PO DAILY multivitamin [One Daily Multivitamin] Tablet 1 tab PO DAILY nystatin 100,000 unit/gram cream 1 applic topical BID omega-3 fatty acids-fish oil 300-1,000 mg capsule 1 cap PO DAILY mupirocin 2 % ointment 1 applic topical BID albuterol sulfate [ProAir HFA] 90 mcg/actuation HFA aerosol inhaler 2 puff inhalation .Q4-6H PRN lamotrigine 200 mg tablet 200 mg PO DAILY gabapentin 400 mg capsule 800 mg PO TID One Daily Calcium/Iron 1 EACH tablet 1 ea PO DAILY melatonin [Melatin] 3 MG tablet 9 mg PO HS Qty: 21 0RF cyclobenzaprine 10 mg tablet 10 mg PO TID PRN (Reason: muscle spasm) Qty: 10 0RF Ibuprofen [Motrin Ib] 200 MG Tablet 600 mg PO Q6H 5 Days Qty: 60 0RF zolpidem 10 mg tablet 10 mg PO HS budesonide-formoterol [Symbicort] 160-4.5 mcg/actuation HFA aerosol inhaler 1 puff INHALATION BID levomefolate calcium 15 mg tablet 15 mg PO DAILY trazodone 100 mg tablet 200 mg PO HS omega-3 fatty acids-fish oil [Fish Oil] 360-1,200 mg capsule 1 cap PO DAILY AM acidophilus-pectin, citrus 25 million cell -100 mg tablet 1 tab PO DAILY AM Vraylar 1.5 MG capsule 3 tab PO DAILY AM risperidone 1 MG tablet 6 mg PO DAILY nystatin [Nyamyc] 100,000 unit/gram powder 1 applic topical BID Qty: 60 3RF mupirocin 2 % ointment kit 1 applic topical BID Qty: 1 0RF Discharge Instructions Instructions: Chronic Wound Care (ED) Additional Instructions: A prescription for nystatin powder has been sent electronically to your pharmacy to use twice daily to the affected area for the next 7 to 10 days. Keep the area clean and dry. Follow-up with your primary care doctor in 1 week. Return to the emergency department with any worsening or new concerning symptoms. Discharge Data Discharge Physician: Lisseth Ch Medical Decision Making 31-year-old male presents with pain in his groin with concern for laceration sustained when his partner pulled a blanket from in between his legs 2 days ago. Of note, patient was seen here last week for tinea cruris and placed on nystatin which she states has significantly improved since then. Inspection of perineum shows no rash but there is a 2 x 2 centimeter irregularly shaped circular area noted within the perineum between the base of the penis and the scrotum. There is no significant cellulitis, abscess, drainage or bleeding. Patient appears nontoxic. Case discussed with general surgery on-call Dr. Ashby who evaluated patient at bedside recommends nystatin powder and keeping the area clean and dry. Prescription for nystatin powder sent electronically to [facility]. Advised to follow up with the primary care doctor for re-evaluation. Usual and customary return precautions given prior to discharge. Medical Records Medical records reviewed: Yes I reviewed the patient's medical records. HPI General Mode of arrival: ambulatory. Date/Time Provider Initiated Documentation: 01/15/22 08:07. Limitations to Documentation: no limitations. Information obtained by: patient. HPI Narrative: Pt is a 31yo M who presents to the ED w/ a possible laceration to his groin area sustained 2 days ago when his friend pulled the blanket out from in between his legs and he felt sudden onset of pain. Patient admits to continued pain in his groin since then. Patient states he has been able to urinate normally and denies any fever. Related Data Home Medications Medication Instructions Recorded Confirmed melatonin 3 mg tablet (Melatin) 9 mg PO HS ##21 03/24/17 01/15/22 ancessfzfvdh-Ij-moln-minerals (One 1 ea PO DAILY 03/24/17 01/15/22 Daily Calcium/Iron tablet) cariprazine 1.5 mg capsule 3 tab PO DAILY AM 03/16/18 01/15/22 (Vraylar) risperidone 1 mg tablet 6 mg PO DAILY 09/05/18 01/15/22 Ibuprofen [Motrin Ib] 600 mg PO Q6H 5 days ##60 02/23/19 01/15/22 cyclobenzaprine 10 mg tablet 10 mg PO TID PRN muscle spasm #10 02/23/19 01/15/22 tabs acidophilus 25 million 2 tab PO DAILY 06/08/21 01/15/22 cell-pectin, citrus 100 mg tablet albuterol sulfate 90 mcg/actuation 2 puff inhalation .Q4-6H PRN 06/08/21 01/15/22 aerosol inhaler (ProAir HFA) atorvastatin 10 mg tablet 10 mg PO QHS 06/08/21 01/15/22 gabapentin 400 mg capsule 800 mg PO TID 06/08/21 01/15/22 lamotrigine 200 mg tablet 200 mg PO DAILY 06/08/21 01/15/22 levomefolate calcium 15 mg capsule 15 mg PO DAILY 06/08/21 01/15/22 lidocaine 4 % topical cream 1 applic topical .COMPLEX 06/08/21 01/15/22 metformin 500 mg tablet 500 mg PO DAILY 06/08/21 01/15/22 multivitamin (One Daily 1 tab PO DAILY 06/08/21 01/15/22 Multivitamin tablet) mupirocin 2 % topical ointment 1 applic topical BID 06/08/21 01/15/22 nystatin 100,000 unit/gram topical 1 applic topical BID 06/08/21 01/15/22 cream omega-3 fatty acids-fish oil 300 1 cap PO DAILY 06/08/21 01/15/22 mg-1,000 mg capsule topiramate 100 mg tablet 100 mg PO BID 06/08/21 01/15/22 acidophilus 25 million 1 tab PO DAILY AM 08/28/21 01/15/22 cell-pectin, citrus 100 mg tablet budesonide-formoterol HFA 160 1 puff inhalation BID 08/28/21 01/15/22 mcg-4.5 mcg/actuation aerosol inhaler (Symbicort) levomefolate calcium 15 mg tablet 15 mg PO DAILY 08/28/21 01/15/22 omega-3 fatty acids-fish oil 360 1 cap PO DAILY AM 08/28/21 01/15/22 mg-1,200 mg capsule (Fish Oil) trazodone 100 mg tablet 200 mg PO HS 08/28/21 01/15/22 zolpidem 10 mg tablet 10 mg PO HS 08/28/21 01/15/22 mupirocin 2 % ointment topical kit 1 applic topical BID #1 ea 01/08/22 01/15/22 nystatin 100,000 unit/gram topical 1 applic topical BID #60 grams 01/08/22 01/15/22 powder ([facility]) nystatin 100,000 unit/gram topical 1 applic topical BID #60 grams 01/15/22 powder Previous Rx's Medication Instructions Recorded melatonin 3 mg tablet (Melatin) 9 mg PO HS ##21 03/24/17 Ibuprofen [Motrin Ib] 600 mg PO Q6H 5 days ##60 02/23/19 cyclobenzaprine 10 mg tablet 10 mg PO TID PRN muscle spasm #10 02/23/19 tabs mupirocin 2 % ointment topical kit 1 applic topical BID #1 ea 01/08/22 nystatin 100,000 unit/gram topical 1 applic topical BID #60 grams 01/08/22 powder ([facility]) nystatin 100,000 unit/gram topical 1 applic topical BID #60 grams 01/15/22 powder Allergies Allergy/AdvReac Type Severity Reaction Status Date / Time cariprazine [From Vraylar] Allergy Severe Other (See Unverified 01/15/22 08:08 Comment) aripiprazole [From Abilify] AdvReac Severe Headache Verified 01/15/22 08:08 General Stated Complaint: Laceration RAI: 4 Review of Systems All systems reviewed & are unremarkable except as noted in HPI and below Constitutional Constitutional: Denies chills, Denies excessive sweating, Denies fatigue, Denies fever(s), Denies weakness and Denies weight loss Eyes Eyes: Reports system reviewed and no additional complaints, except as documented and Denies blurry vision ENT Ears, Nose, Mouth, and Throat: Denies vertigo, Denies dizziness, Denies otalgia, Denies nasal congestion, Denies sore throat and Denies throat swelling Cardiovascular Cardiovascular: Denies chest pain, Denies syncope, Denies rapid heart rate and Denies dyspnea Respiratory Respiratory: Denies chest congestion, Denies cough, Denies pain on inspiration and Denies dyspnea Gastrointestinal Gastrointestinal: Denies abdominal pain, Denies diarrhea and Denies vomiting Genitourinary Genitourinary: Denies hematuria, Denies dysuria and Denies flank pain Musculoskeletal Musculoskeletal: Denies back pain and Denies joint swelling Integumentary/Breasts Skin/Breast: Denies lesions and Denies rash Neurologic Neurologic: Denies behavioral changes, Denies confusion, Denies vertigo, Denies dizziness, Denies syncope, Denies localized weakness and Denies weakness Psychiatric Psychiatric: Denies behavioral changes, Denies confusion and Denies depression Endocrine Endocrine: Denies excessive sweating and Denies fatigue Hematologic/Lymphatic Hematologic/Lymphatic: Denies easy bruising and Denies lymphadenopathy Allergic/Immunologic Allergic/Immunologic: Denies throat swelling PFSH All Active Problems (Updated 01/15/22 @ 08:39 by Lisseth Ch DO) Umbilical discharge (Acute) Tinea cruris (Acute) Perineal ulcer (Acute) Medical History Anemia Galactorrhea History of prediabetes Hyperlipidemia Insomnia Intermittent asthma Lactose intolerance Schizoaffective disorder Family History Mother , AT 49 YRS OLD Lung cancer Chronic mental illness Sister Hepatitis C Drug addict Sister , AT 29 OVERDOSE Hepatitis C Cancer Sister , AT 17 Down's syndrome Infant autism Brother Drug addict Hepatitis C Social History Smoking/Tobacco Use Status: Never Smoking risk assessment performed?: Yes Alcohol Intake: never Drug use: Never Substance use type: does not use Do you feel safe at home: Yes Do you feel safe in your relationship?: Yes Exam Const General: cooperative and healthy appearing Orientation: alert, awake and oriented x3 HENMT Head: normal to inspection Ears: hearing grossly normal bilaterally, external ears normal and TM's normal bilaterally General nose exam: external nose normal Face and sinus: normal facial exam Mouth: oral mucosae normal Teeth and gingiva: dentition normal Throat: posterior oropharynx normal Eyes General: appearance normal, both eyes and all related structures Eyelids: eyelids normal Pupils: PERRL EOM: EOM intact bilaterally Neck Neck: normal visual inspection Lymphatic: no lymphadenopathy noted Chest Chest: normal inspection of the chest Resp Effort & Inspection: normal respiratory effort and able to speak in complete sentences Auscultation: clear to auscultation bilaterally Cardio Rate: regular rate Rhythm: regular rhythm GI Inspection: normal to inspection Palpation: soft, not firm, no guarding, no hepatosplenomegaly, no masses and nontender Auscultation: normal bowel sounds Other: Patient has an approximate 2 x 2 centimeter irregularly shaped circular ulcer noted in the right perineum between the base of the penis and the scrotum. There is no significant surrounding erythema, edema, drainage or bleeding. Back/Spine/Pelvis Back: no CVA tenderness Skin General skin exam: no rashes or lesions noted Neuro General: patient alert and patient awake Cognition: normal cognition Speech: speech normal Gait: normal gait Motor: muscle tone normal throughout Sensory Exam: no sensory deficits noted Extrem General: normal to inspection, full ROM and capillary refill normal Psych Appearance: grossly normal Mental Status: mental status grossly normal Speech and Movement: speech and movement normal Affect: normal affect Thought Process: normal Course Vital Signs Vital signs: Vital Signs Temperature 98.2 F 01/15/22 08:03 Pulse 81 01/15/22 08:03 Respiratory Rate 16 01/15/22 08:03 Blood Pressure 140/93 H 01/15/22 08:03 Pulse Oximetry 97 01/15/22 08:03 Temperature 98.2 F 01/15/22 08:03 Temperature Source Oral 01/15/22 08:03 Pulse 81 01/15/22 08:03 Respiratory Rate 16 01/15/22 08:03 Respiratory Effort 01/15/22 08:03 Blood Pressure 140/93 H 01/15/22 08:03 Blood Pressure Position Sitting 01/15/22 08:03 Pulse Oximetry 97 01/15/22 08:03 Oxygen Delivery Method Room Air 01/15/22 08:03 Oxygen Flow Rate 0 01/15/22 08:03 Pain Level 9 01/15/22 08:03
--- NOTE | 2022-01-15 09:00 | W.SURGCON ---
Date of service: 01/15/22 Time of Service: 09:00 Assessment and Plan Assessment and plan (1) Perineal ulcer: Status: Acute Assessment and plan: -Scrotal skin tear, recommend dry dressings, nystatin powder and adequate hygiene -Can make apt to follow up in our office next week (2) Tinea cruris: Status: Acute History of Present Illness Narrative: 31 year old male with morbid obesity who presented to the ER complaining of skin tear to scrotal area. Patient was seen recently for groin/scrotal yeast infection and was prescribed nystatin cream. He reports significant improvement in rash but unfortunately when a blanket was pulled from under him the skin tore. It is a superficial tear that should heal easily by secondary intention. Consults Consult date: 01/15/22 Requesting physician: Lisseth Ch Review of Systems All systems reviewed & are unremarkable except as noted in HPI and below Integumentary/Breasts Skin/Breast: Reports skin ulcer and Reports wounds (right lower scrotal tissue skin tear) PFSH All Active Problems (Updated 01/15/22 @ 08:39 by Lisseth Ch, DO) Umbilical discharge (Acute) Tinea cruris (Acute) Perineal ulcer (Acute) Medical History Anemia Galactorrhea History of prediabetes Hyperlipidemia Insomnia Intermittent asthma Lactose intolerance Schizoaffective disorder Family History Mother , AT 49 YRS OLD Lung cancer Chronic mental illness Sister Hepatitis C Drug addict Sister , AT 29 OVERDOSE Hepatitis C Cancer Sister , AT 17 Down's syndrome Infant autism Brother Drug addict Hepatitis C Social History Smoking/Tobacco Use Status: Never Smoking risk assessment performed?: Yes Alcohol Intake: never Drug use: Never Substance use type: does not use Do you feel safe at home: Yes Do you feel safe in your relationship?: Yes Exam Const General: cooperative, comfortable and anxious Nutritional Appearance: obese morbidly obese GI Inspection: large pannus and obesity Male General Exam: Yes erythema (mild), Yes lacerations (right lower scrotal tissue skin tear) and Yes tenderness Scrotum: ulceration (see above, skin tear) on the right Neuro General: patient alert, patient awake and patient oriented x3 Speech: speech normal Gait: normal gait Results Last Vital Signs Temp 98.2 F 01/15/22 08:03 Pulse 81 01/15/22 08:03 Resp 16 01/15/22 08:03 BP 140/93 H 01/15/22 08:03 Pulse Ox 97 01/15/22 08:03
== END 2022-01-15 09:19 | disposition home or self-care (01) ==
PROVIDERS: Emergency Provider Physician Assistant; PCP Family Medicine
DX: L98.498 Non-pressure chronic ulcer of skin of other sites with other specified severity (principal)
CPT/HCPCS: 99283

== ENCOUNTER 2022-05-17 20:13 | Outpatient (REF) | payer MEDICARE, MEDICAID, SELFPAY ==
[2022-05-17 19:46] LABS: Anion Gap 7.1 mmol/L (3-11); BUN 7 mg/dL (7-18); CO2 26.9 mmol/L (21.0-32.0); CREATININE 1.3 mg/dL (0.70-1.30); Calcium 9.1 mg/dL (8.5-10.1); Chloride 106 mmol/L (98-107); Estimated GFR 75.79 (mL/min/1.73m2); Glucose 123 mg/dL (74-106); Potassium 3.9 mmol/L (3.5-5.1); Sodium 140 mmol/L (136-145)
== END 2022-05-17 20:14 | disposition home or self-care (01) ==
LOC: NCHCN 20:13
PROVIDERS: PCP Family Medicine; Visit Provider Physician Assistant
DX: R60.0 Localized edema (principal)
CPT/HCPCS: 80048

== ENCOUNTER 2022-05-22 03:30 | Outpatient (CLI) | payer MEDICARE, MEDICAID, SELFPAY ==
[2022-05-22] MEDS: Albuterol HFA 18 GM 200 PUFF INH IH (14:34)
[2022-05-22] MEDS: Inhaler, Assist Device 1 EACH MC (14:35)
--- NOTE | 2022-05-23 12:59 | W.PFT ---
Date of service: 05/22/22 Time of Service: 13:45 Pulmonary Function Test Result Requesting Provider Barron Joyce Indications: Asthma, dyspnea Interpretation Spirometry: There is no airflow limitation. There is no significant bronchodilator response. Lung Volumes: Normal lung volumes Diffusion Capacity: Elevated diffusion Airway Pressure: Normal resistance. Impression Normal pulmonary function testing. The elevated diffusion is likely due to an elevated BMI. Clinical Correlation therefore is recommended.
== END 2022-05-22 03:31 | disposition home or self-care (01) ==
PROVIDERS: PCP Family Medicine; Visit Provider Family Medicine
DX: J45.40 Moderate persistent asthma, uncomplicated (principal); R06.09 Other forms of dyspnea
CPT/HCPCS: 94060; 94726; 94729

== ENCOUNTER 2022-06-12 16:42 | Outpatient (REF) | payer MEDICARE, MEDICAID, SELFPAY ==
[2022-06-14 09:52] LABS: Hepatitis B Surface Ag Negative (Negative)
[2022-06-14 10:25] LABS: Hepatitis C Ab w Rflx HCV PCR Negative (Negative)
[2022-06-14 10:32] LABS: HIV-1/2 Ag & Ab Screen Negative (Negative)
[2022-06-14 11:58] LABS: Syphilis Serology (RPR) Negative (Negative)
== END 2022-06-12 16:43 | disposition home or self-care (01) ==
LOC: NCHCN 16:42
PROVIDERS: PCP Family Medicine; Visit Provider Family Medicine
DX: Z11.4 Encounter for screening for human immunodeficiency virus [HIV] (principal); Z11.59 Encounter for screening for other viral diseases; Z11.3 Encounter for screening for infections with a predominantly sexual mode of transmission
CPT/HCPCS: 86803; 87340; 87389; 86592

== ENCOUNTER → 2022-06-30 00:32 | Outpatient (CLI) | payer MEDICARE, MEDICAID, SELFPAY ==
--- NOTE | 2022-06-30 12:30 | DI.US_ITS ---
Exam(s) US RENAL EXAM: US RENAL CLINICAL HISTORY: SUPRAPUBIC PAIN, R10.30, FULLNESS, BMI > 60. TECHNIQUE: Billings scale, color and spectral Doppler were used. COMPARISON: CT CT ABDOMEN PELVIS W from 07/30/[address] CHEST PE CTA from 08/28/2021 FINDINGS: Examination limited by patient body habitus. Renal size in cm: Right: 10.6. Left: 11.7. Echogenicity: Normal. Hydronephrosis: No. Cyst or mass: No. Nephrolithiasis: No. Other findings: None. Bladder:Normal. Ureteral jets: Right: Visualized and unremarkable. Left: Visualized and unremarkable. Prevoid vol:383 cc Postvoid vol:0 cc Prostate: Could not be visualized. Renal color flow: Symmetric and within normal limits. IMPRESSION: 1. Examination limited by patient body habitus. 2. No gross abnormality. DATA REPOSITORY:
--- NOTE | 2022-06-30 12:30 | DI.US_ITS ---
Exam(s) US HERNIA EXAM: US HERNIA CLINICAL HISTORY: SUPRAPUBIC PAIN, R10.30, FULLNESS, BMI > 60. TECHNIQUE: Ultrasound was performed using standard protocol. COMPARISON: No exams were available for comparison FINDINGS: Sonographic assessment utilizing grayscale and color Doppler imaging was performed and targeted to th e area of clinical concern. The suprapubic area and both inguinal areas were evaluated sonographically. No abnormalities identif ied sonographically. IMPRESSION: Negative targeted ultrasound. DATA REPOSITORY:
== END ==
PROVIDERS: PCP Family Medicine; Visit Provider Family Medicine
DX: R10.30 Lower abdominal pain, unspecified (principal)
CPT/HCPCS: 76770; 76857

== ENCOUNTER 2023-02-20 16:49 | Outpatient (REF) | payer MEDICARE, MEDICAID, SELFPAY ==
[2023-02-20 19:51] LABS: Abs Immature Grans 0.03 10^3/uL (0.0-0.06); Absolute Basophil Count 0.02 10^3/uL (0.0-0.2); Absolute Eosinophil Count 0.08 10^3/uL (0.0-0.7); Absolute Monocyte Count 0.48 10^3/uL (0.1-0.8); Basophils % 0.3; Eosinophils % 1.2; HCT 38.5 % (40.0-50.0); HGB 12.6 g/dL (13.5-17.5); Immature Grans % 0.5; Lymphocytes % 24.6; MCH 31.5 pg (27.0-33.0); MCHC 32.7 % (32.0-36.0); MCV 96 fL (80-95); Monocytes % 7.4; Platelet Count 208 10^3/uL (130-400); RDW 13.9 % (11.8-14.1); WBC 6.51 10^3/uL (4.4-10.8)
[2023-02-20 20:29] LABS: ALT 46 U/L (16-63); AST 27 U/L (15-37); Albumin 3.5 g/dL (3.4-5.0); Alkaline Phosphatase 102 U/L (46-116); Anion Gap 8.4 mmol/L (3-11); BUN 4 mg/dL (7-18); Bilirubin, Total 0.5 mg/dL (0.2-1.0); CO2 26.6 mmol/L (21.0-32.0); CREATININE 1.3 mg/dL (0.70-1.30); Calcium 8.6 mg/dL (8.5-10.1); Chloride 107 mmol/L (98-107); Estimated GFR 75.32 (mL/min/1.73m2); Glucose 109 mg/dL (74-106); Potassium 3.8 mmol/L (3.5-5.1); Sodium 142 mmol/L (136-145); Total Protein 6.3 g/dL (6.4-8.2); Vitamin B12 224 pg/mL (193-986)
[2023-02-24 11:26] LABS: Methylmalonic Acid 0.23 nmol/mL (<=0.40)
== END 2023-02-20 16:50 | disposition home or self-care (01) ==
LOC: NCHCN 16:49
PROVIDERS: PCP Family Medicine; Visit Provider Family Medicine
DX: D64.9 Anemia, unspecified (principal); R60.9 Edema, unspecified; R26.89 Other abnormalities of gait and mobility; Z86.39 Personal history of other endocrine, nutritional and metabolic disease
CPT/HCPCS: 80053; 80186; 82607; 85025

== ENCOUNTER 2023-04-12 17:08 | Emergency (ER) | payer MEDICARE, MEDICAID, SELFPAY ==
[2023-04-12 17:20] VITALS: BP 140/105; PULSE 90; RESP 20; TEMP 37.1; O2SAT 97
--- NOTE | 2023-04-12 18:15 | RT.EKG_ITS ---
APPROVED REPORT Exam: Resting ECG Reason for Exam: ? syncope Patient Location: E HR:90 bpm ECG Measurements Heart Rate 90 AXIS IA 175 P 39 QRSd 98 QRS 20 QT 369 T 44 QTc 453 Conclusion Sinus rhythm...normal P axis, V-rate 60- 99 Low voltage, precordial leads...precordial leads <1.0mV
--- NOTE | 2023-04-12 18:15 | DI.CT_ITS ---
Exam(s) CT ABDOMEN PELVIS WO EXAM: CT ABDOMEN PELVIS WO CLINICAL HISTORY: diffuse pain, vomiting, little BM. TECHNIQUE: Imaging Protocol: Axial computed tomography images with coronal and sagittal reformatted images were created and reviewed. Oral: yes / no COMPARISON: CT CT ABDOMEN PELVIS W from 07/30/[address] CHEST PE CTA from 08/28/2021 FINDINGS: ABDOMEN: Lung Bases: Normal where visualized. Liver: Enlarged. Moderate to severe hepatic steatosis.. No measurable mass. Gallbladder and biliary tract: No radiodense calculus or dilation. Pancreas: Normal mildly atrophic. no abnormal calcifications or inflammatory process. Spleen: Mildly enlarged, unchanged, 15 cm in length. Kidneys: Normal size, contour and axis. No radiodense stones or obstructive uropathy. 12 millimeter cyst left kidney unchanged. No follow-up recommended. No masses seen. Adrenal glands: No masses seen. Lymph nodes: Within normal limits. Abdominal Aorta: Abdominal portion non-dilated. PELVIS: Bladder: Symmetric distention, no gross wall thickening. Bowel: Mild diverticulosis distal descending, proximal sigmoid.. No evidence of diverticulitis. No obstruction or bowel wall thickening. Appendix normal. Peritoneal cavity: No ascites, collection or mesenteric inflammatory response. Soft tissues: Small fa tty containing umbilical hernia, unchanged. Reproductive organs: Within normal limits. Bones: Within normal limits. IMPRESSION: No acute abnormality. RADIATION DOSE DELIVERED: 1,624.83mGy.cm Total DLP DATA REPOSITORY: All CT scans at this facility are submitted to the National Radiology Data Registry (NRDR) Dose Index Registry (DIR) with the [employer] ([employer]). RADIATION OPTIMIZATION: All CT scans at this facility use at least one of these dose optimization te chniques: automated exposure control; mA and/or kV adjustment per patient size (includes targeted exa ms where dose is matched to clinical indication); or iterative reconstruction.
[2023-04-12 19:00] LABS: Abs Immature Grans 0.04 10^3/uL (0.0-0.06); Absolute Basophil Count 0.01 10^3/uL (0.0-0.2); Absolute Eosinophil Count 0.07 10^3/uL (0.0-0.7); Absolute Lymphocyte Count 1.82 10^3/uL (1.2-3.4); Absolute Monocyte Count 0.53 10^3/uL (0.1-0.8); Absolute Neutrophil Count 6.48 10^3/uL (1.2-6.7); Basophils % 0.1; Eosinophils % 0.8; HCT 40.4 % (40.0-50.0); HGB 13.2 g/dL (13.5-17.5); Immature Grans % 0.4; Lymphocytes % 20.3; MCH 30.8 pg (27.0-33.0); MCHC 32.7 % (32.0-36.0); MCV 94 fL (80-95); MPV 9.3 fL (8.0-11.0); Monocytes % 5.9; Neutrophils % 72.5; Platelet Count 210 10^3/uL (130-400); RBC 4.28 10^6/uL (4.36-5.78); RDW 13.6 % (11.8-14.1); RDW-SD 47.4 fL; WBC 8.95 10^3/uL (4.4-10.8)
[2023-04-12] MEDS: Normal Saline 1,000 ML 1000 ML IV (19:05)
[2023-04-12 19:10] LABS: Lipase 55 U/L (16-77)
[2023-04-12 19:18] LABS: ALT 53 U/L (16-63); AST 28 U/L (15-37); Albumin 3.7 g/dL (3.4-5.0); Alkaline Phosphatase 107 U/L (46-116); Anion Gap 12.6 mmol/L (3-11); BUN 5 mg/dL (7-18); Bilirubin, Total 0.6 mg/dL (0.2-1.0); CO2 24.4 mmol/L (21.0-32.0); CREATININE 1.4 mg/dL (0.70-1.30); Calcium 9.4 mg/dL (8.5-10.1); Chloride 103 mmol/L (98-107); Estimated GFR 68.91 (mL/min/1.73m2); Glucose 112 mg/dL (74-106); Magnesium 1.9 mg/dL (1.8-2.4); Potassium 3.4 mmol/L (3.5-5.1); Sodium 140 mmol/L (136-145); Total Protein 7.3 g/dL (6.4-8.2)
--- NOTE | 2023-04-12 19:40 | DI.VRAD_ITS ---
PROCEDURE INFORMATION: Exam: CT Abdomen And Pelvis Without Contrast Exam date and time: 04/12/2023 7:08 PM Age: 33 years old Clinical indication: Abdominal pain; Patient HX: Diffuse pain, vomiting, little bm TECHNIQUE: Imaging protocol: Computed tomography of the abdomen and pelvis without contrast. COMPARISON: CT ABDOMEN PELVIS W 07/30/2019 8:39 PM FINDINGS: Liver: The liver parenchyma demonstrates diffusely decreased attenuation, suggesting fatty infiltration. Gallbladder and bile ducts: Normal. No calcified stones. No ductal dilation. Pancreas: The pancreas is moderately atrophic but appears otherwise unremarkable without focal lesion or evidence of acute inflammation. Spleen: The spleen has a length of 15 cm, unchanged from prior study, consistent with mild splenomegaly. Adrenal glands: Normal. No mass. Kidneys and ureters: No renal or ureteral stones are identified. There is no hydronephrosis or hydroureter. There is a 1.2 cm exophytic left renal cyst, increased in size since prior study. Stomach and bowel: There are multiple distal colonic diverticula without evidence for acute diverticulitis. There is no evidence of small or large bowel inflammation. There is no evidence for bowel obstruction. Appendix: No evidence of appendicitis. Intraperitoneal space: There is no evidence of free intraperitoneal fluid. There is no free intraperitoneal air. Vasculature: Unremarkable. No abdominal aortic aneurysm. Lymph nodes: Unremarkable. No enlarged lymph nodes. Urinary bladder: No bladder stones are identified. Reproductive: Unremarkable as visualized. Bones/joints: There is multilevel minimal degenerative change of the lower thoracic and lumbar spine. No acute fractures are identified. Soft tissues: There is a 3.3 x 1.5 cm fat containing umbilical hernia, without clear change from prior study. IMPRESSION: 1. No acute process within the abdomen or pelvis identified. 2. Hepatic steatosis. 3. Mild splenomegaly, unchanged from prior study. 4. Small fat containing umbilical hernia, without clear change from prior study. Dictated and Authenticated by: Barron Echeverria MD. Ordering:JAVIER Dixon MD
--- NOTE | 2023-04-12 20:10 | ED.GENADUL_ITS ---
Discharge Plan Disposition Patient Disposition: Home Discharge Details Clinical Impression: Constipation Primary Care Provider: Barron Joyce ED Provider: Destiny Muniz Home Meds and New Rx's Prescriptions: Continued lidocaine 4 % cream 1 applic topical .COMPLEX Rx Instructions: 1 applic topical; as needed for blood draw or vaccine metformin 500 mg tablet 500 mg PO DAILY topiramate [Topamax] 100 mg tablet 100 mg PO BID multivitamin [One Daily Multivitamin] Tablet 1 tab PO DAILY albuterol sulfate [ProAir HFA] 90 mcg/actuation HFA aerosol inhaler 2 puff inhalation .Q4-6H PRN Patient Comments: Pt states not taking ML 04/12/23 lamotrigine [Lamictal] 200 mg tablet 250 mg PO DAILY gabapentin 400 mg capsule 800 mg PO TID clotrimazole 1 % cream 1 applic topical BID atorvastatin 10 mg tablet 20 mg PO QHS furosemide 20 mg tablet 20 mg PO DAILY Patient Comments: Pt states not taking ML 04/12/23 Kayla Protect (zinc oxide) 12 % cream 1 applic topical TID fluticasone propionate [Allergy Relief (fluticasone)] 50 mcg/actuation spray,suspension 2 spray intranasal DAILY Rx Instructions: administer into each nostril acetylcysteine [NAC] 600 mg capsule 600 mg PO DAILY Daily Multivitamin-Minerals Tablet 1 tab PO DAILY melatonin [Melatin] 3 MG tablet 9 mg PO HS Qty: 21 0RF Patient Comments: Pt states not taking ML 04/12/23 cyclobenzaprine 10 mg tablet 10 mg PO TID PRN (Reason: muscle spasm) Qty: 10 0RF Patient Comments: Pt unsure if he takes - ML 04/12/23 Ibuprofen [Motrin Ib] 200 MG Tablet 600 mg PO Q6H 5 Days Qty: 60 0RF Patient Comments: Pt states he does not take - ML 04/12/23 zolpidem [Ambien] 10 mg tablet 10 mg PO HS Patient Comments: Pt states not taking ML 04/12/23 budesonide-formoterol [Symbicort] 160-4.5 mcg/actuation HFA aerosol inhaler 1 puff INHALATION BID Patient Comments: Pt states not taking ML 04/12/23 levomefolate calcium [Elfolate] 15 mg tablet 15 mg PO DAILY trazodone 100 mg tablet 200 mg PO HS Patient Comments: Pt states not taking ML 04/12/23 omega-3 fatty acids-fish oil [Fish Oil] 360-1,200 mg capsule 1 cap PO DAILY AM acidophilus-pectin, citrus 25 million cell -100 mg tablet 1 tab PO DAILY AM Patient Comments: Pt states not taking ML 04/12/23 Vraylar 1.5 MG capsule 3 tab PO DAILY AM Patient Comments: Pt states he's allergic out of it sick confusion - ML 04/12/23 risperidone [Risperdal] 1 MG tablet 6 mg PO DAILY nystatin [Nyamyc] 100,000 unit/gram powder 1 applic topical BID Qty: 60 3RF mupirocin 2 % ointment kit 1 applic topical BID Qty: 1 0RF nystatin 100,000 unit/gram powder 1 applic topical BID Qty: 60 0RF Discharge Instructions Instructions: Constipation (ED) Additional Instructions: Take MiraLAX 1 capful twice a day until you are pooping more normal Colace as prescribed for stool softener. You can also use Senokot as prescribed recheck with your primary care doc as needed. Return to ED for fever of 100.4 or above, pain localized to 1 area in your belly, any other can Medical Decision Making Before patient's CAT scan was back he was asking for food. He ate food in the ED without difficulty and exhibited no vomiting. He remained nontoxic in appearance. His labs were not hugely impressive and he was given IV fluid. He was advised to follow-up with his PCP for additional evaluation. He will return for belly pain localized to 1 area, fever of 100.4 or above, any other concerns. Medical Records Medical records reviewed: Yes I reviewed the patient's medical records. Imaging Data Radiologic Study: Imaging: CT Scan Radiologist's impression: Patient Name: Steve Rojas Unit #: [id number] Loc: ER ? Ordering Provider:? Status: REG ER ? Primary Care Provider: Barron Joyce Date of Exam: 04/12/23 Sex: M ? : 1990 Age: 33 ? Exam(s) PROCEDURE INFORMATION: Exam: CT Abdomen And Pelvis Without Contrast Exam date and time: 04/12/2023 7:08 PM Age: 33 years old Clinical indication: Abdominal pain; Patient HX: Diffuse pain, vomiting, little bm TECHNIQUE: Imaging protocol: Computed tomography of the abdomen and pelvis without contrast. COMPARISON: CT ABDOMEN PELVIS W 07/30/2019 8:39 PM FINDINGS: Liver: The liver parenchyma demonstrates diffusely decreased attenuation, suggesting fatty infiltration. Gallbladder and bile ducts: Normal. No calcified stones. No ductal dilation. Pancreas: The pancreas is moderately atrophic but appears otherwise unremarkable without focal lesion or evidence of acute inflammation. Spleen: The spleen has a length of 15 cm, unchanged from prior study, consistent with mild splenomegaly. Adrenal glands: Normal. No mass. Kidneys and ureters: No renal or ureteral stones are identified. There is no hydronephrosis or hydroureter. There is a 1.2 cm exophytic left renal cyst, increased in size since prior study. Stomach and bowel: There are multiple distal colonic diverticula without evidence for acute diverticulitis. There is no evidence of small or large bowel inflammation. There is no evidence for bowel obstruction. Appendix: No evidence of appendicitis. Intraperitoneal space: There is no evidence of free intraperitoneal fluid. There is no free intraperitoneal air. Vasculature: Unremarkable. No abdominal aortic aneurysm. Lymph nodes: Unremarkable. No enlarged lymph nodes. Urinary bladder: No bladder stones are identified. Reproductive: Unremarkable as visualized. Bones/joints: There is multilevel minimal degenerative change of the lower thoracic and lumbar spine. No acute fractures are identified. Soft tissues: There is a 3.3 x 1.5 cm fat containing umbilical hernia, without clear change from prior study. IMPRESSION: 1. ? No acute process within the abdomen or pelvis identified. 2. ? Hepatic steatosis. 3. ? Mild splenomegaly, unchanged from prior study. 4. ? Small fat containing umbilical hernia, without clear change from prior study. Dictated and Authenticated by: Barron Echeverria MD. Ordering:JAVIER Dixon MD Lab Data Lab results reviewed: Yes I reviewed the patient's lab results. Lab results narrative: CBC is normal. Potassium 3.4, BUN 5, creatinine 1.4, anion gap 12.6, glucose 112, remainder of labs normal. HPI General Date/Time Provider Initiated Documentation: 04/12/23 17:34 . HPI Narrative: This obese 33-year-old male patient presents with a chief complaint of constipation. Patient states he has been constipated for a month and has not moved his bowels. I told him that he must of moved his bowels somewhat. He says it is just been small amounts at a time he also says he has been vomiting and not keeping anything down. Reported that he is got some diffuse abdominal pain. There has been no fever or chills. He has no dysuria or hematuria. His partner says that when he was sitting on the couch today he did slump forward but did not hit his head. He has been evaluated previously for these episodes which have been ongoing for many years. He woke easily with no complaints. There was no seizure activity. The patient reports that his belly pain is somewhat crampy and mild to moderate. It does not radiate into his back. It is pretty constant. It started weeks ago. Related Data Home Medications Medication Instructions Recorded Confirmed melatonin 3 mg tablet (Melatin) 9 mg PO HS ##21 03/24/17 01/15/22 cariprazine 1.5 mg capsule 3 tab PO DAILY AM 03/16/18 01/15/22 (Vraylar) risperidone 1 mg tablet (Risperdal) 6 mg PO DAILY 09/05/18 04/12/23 Ibuprofen [Motrin Ib] 600 mg PO Q6H 5 days ##60 02/23/19 01/15/22 cyclobenzaprine 10 mg tablet 10 mg PO TID PRN muscle spasm #10 02/23/19 01/15/22 tabs albuterol sulfate 90 mcg/actuation 2 puff inhalation .Q4-6H PRN 06/08/21 01/15/22 aerosol inhaler (ProAir HFA) gabapentin 400 mg capsule 800 mg PO TID 06/08/21 04/12/23 lamotrigine 200 mg tablet 250 mg PO DAILY 06/08/21 04/12/23 (Lamictal) lidocaine 4 % topical cream 1 applic topical .COMPLEX 06/08/21 04/12/23 metformin 500 mg tablet 500 mg PO DAILY 06/08/21 04/12/23 multivitamin (One Daily 1 tab PO DAILY 06/08/21 04/12/23 Multivitamin tablet) topiramate 100 mg tablet (Topamax) 100 mg PO BID 06/08/21 04/12/23 acidophilus 25 million 1 tab PO DAILY AM 08/28/21 01/15/22 cell-pectin, citrus 100 mg tablet budesonide-formoterol HFA 160 1 puff inhalation BID 08/28/21 01/15/22 mcg-4.5 mcg/actuation aerosol inhaler (Symbicort) levomefolate calcium 15 mg tablet 15 mg PO DAILY 08/28/21 04/12/23 (Elfolate) omega-3 fatty acids-fish oil 360 1 cap PO DAILY AM 08/28/21 04/12/23 mg-1,200 mg capsule (Fish Oil) trazodone 100 mg tablet 200 mg PO HS 08/28/21 01/15/22 zolpidem 10 mg tablet (Ambien) 10 mg PO HS 08/28/21 01/15/22 mupirocin 2 % ointment topical kit 1 applic topical BID #1 ea 01/08/22 04/12/23 nystatin 100,000 unit/gram topical 1 applic topical BID #60 grams 01/08/22 04/12/23 powder (Nyamyc) nystatin 100,000 unit/gram topical 1 applic topical BID #60 grams 01/15/22 04/12/23 powder acetylcysteine 600 mg capsule (NAC) 600 mg PO DAILY 05/25/22 04/12/23 atorvastatin 10 mg tablet 20 mg PO QHS 05/25/22 04/12/23 clotrimazole 1 % topical cream 1 applic topical BID 05/25/22 04/12/23 fluticasone propionate 50 2 spray intranasal DAILY 05/25/22 04/12/23 mcg/actuation nasal spray,suspension (Allergy Relief (fluticasone)) furosemide 20 mg tablet 20 mg PO DAILY 05/25/22 multivitamin with minerals (Daily 1 tab PO DAILY 05/25/22 04/12/23 Multivitamin-Minerals tablet) zinc oxide 12 % topical cream 1 applic topical TID 05/25/22 04/12/23 (Kayla Protect (zinc oxide)) Previous Rx's Medication Instructions Recorded melatonin 3 mg tablet (Melatin) 9 mg PO HS ##21 03/24/17 Ibuprofen [Motrin Ib] 600 mg PO Q6H 5 days ##60 02/23/19 cyclobenzaprine 10 mg tablet 10 mg PO TID PRN muscle spasm #10 02/23/19 tabs mupirocin 2 % ointment topical kit 1 applic topical BID #1 ea 01/08/22 nystatin 100,000 unit/gram topical 1 applic topical BID #60 grams 01/08/22 powder (Nyamyc) nystatin 100,000 unit/gram topical 1 applic topical BID #60 grams 01/15/22 powder Allergies Allergy/AdvReac Type Severity Reaction Status Date / Time cariprazine [From Vraylar] Allergy Severe Other (See Unverified 04/12/23 17:25 Comment) naltrexone Allergy Verified 04/12/23 17:25 aripiprazole [From Abilify] AdvReac Severe Headache Verified 04/12/23 17:25 General Stated Complaint: Abd Prob RAI: 3 Review of Systems Constitutional Constitutional: Denies chills, Denies fever(s), Denies headache(s) and Denies weakness Eyes Eyes: Denies diplopia and Reports other (no redness) ENT Ears, Nose, Mouth, and Throat: Denies otalgia, Denies headache(s), Denies nasal congestion, Denies nasal discharge, Denies neck pain and Denies sore throat Cardiovascular Cardiovascular: Denies chest pain, Denies palpitations and Denies dyspnea Respiratory Respiratory: Denies cough and Denies dyspnea Gastrointestinal Gastrointestinal: Reports abdominal pain, Denies diarrhea, Reports nausea and Reports vomiting Genitourinary Genitourinary: Denies difficulty urinating and Denies dysuria Musculoskeletal Musculoskeletal: Denies myalgias, Denies muscle weakness, Denies neck pain, Denies numbness and Reports other (edema) Integumentary/Breasts Skin/Breast: Denies change in pigmentation and Denies rash Neurologic Neurologic: Denies headache(s), Denies numbness and Denies weakness Endocrine Endocrine: Denies palpitations PFSH All Active Problems Constipation (Acute) Medical History Adult body mass index 60.0-69.9 Anemia Anemia, mild Asthma Blurred vision Marguerite infection Candidal diaper dermatitis Chronic lower back pain Edema Episode of unresponsiveness Galactorrhea History of prediabetes Hyperlipidemia Insomnia Intermittent asthma Lactose intolerance Recurrent episodes of unresponsiveness Right wrist pain Schizoaffective disorder Skin ulcer Sleep apnea Umbilical granuloma Family History Mother , AT 49 YRS OLD Lung cancer Chronic mental illness Sister Hepatitis C Drug addict Sister , AT 29 OVERDOSE Hepatitis C Cancer Sister , AT 17 Down's syndrome autism Brother Drug addict Hepatitis C Social History Smoking/Tobacco Use Status: Never Smoking risk assessment performed?: Yes Alcohol Intake: never Drug use: Never Substance use type: does not use Do you feel safe at home: Yes Do you feel safe in your relationship?: Yes Exam Const General: no acute distress, well developed, well groomed and not in acute distress Nutritional Appearance: well nourished Orientation: alert and oriented x3 HENMT Head: normocephalic and atraumatic Ears: external ears normal Mouth: oropharynx normal and moist mucous membranes Throat: posterior oropharynx normal Eyes Conjunctivae: conjunctivae normal Neck Neck: full ROM and supple Chest Chest: normal inspection of the chest Resp Effort & Inspection: normal respiratory effort Auscultation: clear to auscultation bilaterally Cardio Rate: regular rate Rhythm: regular rhythm Heart Sounds: no murmurs and no rubs GI Inspection: normal to inspection (Except morbidly obese) Palpation: soft, tender ( Mild and diffuse, no guarding/ rebound) and other (non distended) Auscultation: normal bowel sounds Skin General skin exam: no rashes or lesions noted and other (pink, warm, dry) Neuro General: patient alert, patient awake and patient oriented x3 Speech: speech normal Motor: other (MURRAY) Sensory Exam: no sensory deficits noted Extrem General: normal to inspection, full ROM and pedal edema present Psych Mental Status: mental status grossly normal Speech and Movement: speech and movement normal Affect: normal affect Course Vital Signs Vital signs: Vital Signs Temperature 37.1 C 04/12/23 17:20 Pulse 90 04/12/23 17:20 Respiratory Rate 20 04/12/23 17:20 Blood Pressure 140/105 H 04/12/23 17:20 Pulse Oximetry 97 04/12/23 17:20 Temperature 37.1 C 04/12/23 17:20 Temperature Source Oral 04/12/23 17:20 Pulse 90 04/12/23 17:20 Respiratory Rate 20 09/21/23 17:20 Respiratory Effort Normal 04/12/23 17:26 Blood Pressure 140/105 H 04/12/23 17:20 Blood Pressure Position Sitting 04/12/23 17:20 Pulse Oximetry 97 04/12/23 17:20 Oxygen Delivery Method Room Air 04/12/23 17:20 Oxygen Flow Rate 0 04/12/23 17:20 Pain Level 3 04/12/23 18:18 Lab/Test Results Lab/Test Results: Laboratory Tests Range/Units 04/12/23 04/12/23 04/12/23 18:52 18:52 18:52 WBC (4.4-10.8) 10^3/uL 8.95 RBC (4.36-5.78) 10^6/uL 4.28 L Hgb (13.5-17.5) g/dL 13.2 L Hct (40.0-50.0) % 40.4 MCV (80-95) fL 94 MCH (27.0-33.0) pg 30.8 MCHC (32.0-36.0) % 32.7 RDW (11.8-14.1) % 13.6 Plt Count (130-400) 10^3/uL 210 MPV (8.0-11.0) fL 9.3 Immature Gran % 0.4 Neutrophils % 72.5 Lymphocytes % 20.3 Monocytes % 5.9 Eosinophils % 0.8 Basophils % 0.1 Nucleated RBC % (0.0-0.3) % 0.0 Absolute Neutrophils (1.2-6.7) 10^3/uL 6.48 Absolute Lymphocytes (1.2-3.4) 10^3/uL 1.82 Absolute Monocytes (0.1-0.8) 10^3/uL 0.53 Absolute Eosinophils (0.0-0.7) 10^3/uL 0.07 Absolute Basophils (0.0-0.2) 10^3/uL 0.01 Sodium (136-145) mmol/L 140 Potassium (3.5-5.1) mmol/L 3.4 L Chloride (98-107) mmol/L 103 Carbon Dioxide (21.0-32.0) mmol/L 24.4 Anion Gap (3-11) mmol/L 12.6 H BUN (7-18) mg/dL 5 L Creatinine (0.70-1.30) mg/dL 1.4 H Est GFR (CKD-EPI 2020) (mL/min/1.73m2) 68.91 Glucose (74-106) mg/dL 112 H Calcium (8.5-10.1) mg/dL 9.4 Magnesium (1.8-2.4) mg/dL 1.9 Total Bilirubin (0.2-1.0) mg/dL 0.6 AST (15-37) U/L 28 ALT (16-63) U/L 53 Alkaline Phosphatase (46-116) U/L 107 Total Protein (6.4-8.2) g/dL 7.3 Albumin (3.4-5.0) g/dL 3.7 Lipase (16-77) U/L 55
[2023-04-12 21:32] LABS: Bilirubin Negative (Negative); Blood Negative (Negative); Clarity Clear (Clear); Glucose Negative (Negative); Ketones Negative (Negative); Leukocyte Esterase Negative (Negative); Nitrite Negative (Negative); Urobilinogen 0.2 mg/dL (Up to 0.2)
== END 2023-04-12 22:26 | disposition home or self-care (01) ==
PROVIDERS: Emergency Provider Emergency Medicine; PCP Family Medicine
DX: K59.00 Constipation, unspecified (principal)
CPT/HCPCS: 36415; 80053; 83690; 93005; 96360; 96361; 99284; 74176; 81003; 83735; 85025; 93010

== ENCOUNTER 2023-08-16 15:36 | Outpatient (REF) | payer MEDICARE, MEDICAID, SELFPAY ==
[2023-08-16 20:15] LABS: Anion Gap 8.5 mmol/L (3-11); BUN 3 mg/dL (7-18); CO2 26.5 mmol/L (21.0-32.0); CREATININE 1.2 mg/dL (0.70-1.30); Calculated LDL 72 mg/dL (<100); Chloride 106 mmol/L (98-107); Cholesterol 135 mg/dL (<200); Estimated GFR 82.92 (mL/min/1.73m2); Glucose 99 mg/dL (74-106); HDL Cholesterol 35 mg/dL (40-60); Magnesium 2.1 mg/dL (1.8-2.4); Potassium 3.7 mmol/L (3.5-5.1); Sodium 141 mmol/L (136-145); Triglyceride 140 mg/dL (<150)
== END 2023-08-16 15:37 | disposition home or self-care (01) ==
LOC: NCHCN 15:36
PROVIDERS: PCP Family Medicine; Visit Provider Family Medicine
DX: E78.5 Hyperlipidemia, unspecified (principal)
CPT/HCPCS: 80048; 80061; 83735

== ENCOUNTER 2023-10-05 16:35 | Outpatient (REF) | payer MEDICARE, MEDICAID, SELFPAY ==
[2023-10-05 19:37] LABS: Hemoglobin A1C 5.3 % (<5.7)
== END 2023-10-05 16:36 | disposition home or self-care (01) ==
LOC: NCHCN 16:35
PROVIDERS: PCP Family Medicine; Visit Provider Family Medicine
DX: R73.03 Prediabetes (principal)
CPT/HCPCS: 83036

== ENCOUNTER 2024-02-21 15:17 | Outpatient (REF) | payer MEDICARE, MEDICAID, SELFPAY ==
[2024-02-21 18:30] LABS: HCT 41.1 % (40.0-50.0); MCH 30.1 pg (27.0-33.0); MCHC 31.6 % (32.0-36.0); MCV 95 fL (80-95); MPV 10.2 fL (8.0-11.0); Platelet Count 212 10^3/uL (130-400); RBC 4.32 10^6/uL (4.36-5.78); RDW 13.3 % (11.8-14.1); WBC 5.76 10^3/uL (4.4-10.8)
[2024-02-21 18:55] LABS: FREE T4 1.09 ng/dL (0.76-1.46); TSH 0.92 uIU/Ml (0.36-3.74)
== END 2024-02-21 15:18 | disposition home or self-care (01) ==
LOC: NCHCN 15:17
PROVIDERS: PCP Family Medicine; Visit Provider Physician Assistant
DX: R53.83 Other fatigue (principal)
CPT/HCPCS: 85027; 84439; 84443

== ENCOUNTER 2024-04-30 11:54 | Outpatient (REF) | payer MEDICARE, MEDICAID, SELFPAY ==
[2024-04-30 15:54] LABS: ALT 17 U/L (16-63); AST 13 U/L (15-37); Albumin 3.8 g/dL (3.4-5.0); Alkaline Phosphatase 99 U/L (46-116); Anion Gap 10.7 mmol/L (3-11); BUN 9 mg/dL (7-18); Bilirubin, Total 0.64 mg/dL (0.2-1.0); CO2 26.3 mmol/L (21.0-32.0); CREATININE 1.2 mg/dL (0.70-1.30); Calcium 9.2 mg/dL (8.5-10.1); Calculated LDL 79 mg/dL (<100); Chloride 111 mmol/L (98-107); Cholesterol 139 mg/dL (<200); Glucose 93 mg/dL (74-106); HDL Cholesterol 35 mg/dL (40-60); Sodium 148 mmol/L (136-145); Total Protein 6.7 g/dL (6.4-8.2); Triglyceride 125 mg/dL (<150)
[2024-04-30 16:05] LABS: Hemoglobin A1C 5.2 % (<5.7)
[2024-05-03 13:21] LABS: Testosterone, Total 281 ng/dL (240-950)
== END 2024-04-30 11:55 | disposition home or self-care (01) ==
LOC: NCHCN 11:54
PROVIDERS: PCP Family Medicine; Visit Provider Physician Assistant
DX: R68.82 Decreased libido (principal); R73.03 Prediabetes
CPT/HCPCS: 80053; 80061; 84403; 83036

== ENCOUNTER 2024-10-24 15:50 | Outpatient (REF) | payer MEDICARE, MEDICAID, SELFPAY ==
[2024-10-24 21:36] LABS: Hemoglobin A1C 4.9 % (<5.7)
[2024-10-24 21:57] LABS: ALT 17 U/L (16-63); AST 10 U/L (15-37); Albumin 3.9 g/dL (3.4-5.0); Alkaline Phosphatase 84 U/L (46-116); Anion Gap 8.6 mmol/L (3-11); BUN 4 mg/dL (7-18); Bilirubin, Total 0.5 mg/dL (0.2-1.0); CO2 27.4 mmol/L (21.0-32.0); CREATININE 1.3 mg/dL (0.70-1.30); Calcium 9.3 mg/dL (8.5-10.1); Chloride 109 mmol/L (98-107); Estimated GFR 74.85 (mL/min/1.73m2); Glucose 88 mg/dL (74-106); Potassium 3.8 mmol/L (3.5-5.1); Sodium 145 mmol/L (136-145); Total Protein 6.2 g/dL (6.4-8.2)
== END 2024-10-24 15:51 | disposition home or self-care (01) ==
LOC: NCHCN 15:50
PROVIDERS: PCP Family Medicine; Visit Provider Physician Assistant
DX: R73.03 Prediabetes (principal)
CPT/HCPCS: 80053; 83036